=== PATIENT | female | born 1930 | race African-American/Black ===

== ENCOUNTER 2016-08-14 15:11 | Inpatient (IN) | payer MEDICARE, BC ==
[~2016-08-14] VITALS: Ht 160 cm; Wt 111.6 kg
[~2016-08-14 15:11] MED LIST: ALLO300T2 PO; CLON0.1T PO; CLOT15CR4 TP; FLUT1DIS3 IH; FURO-151 PO; GABA-533 PO; HYDR-523 PO; INSU3INS6 SUBCUT; METO10TA8 PO; PRAN1 PO
[2016-08-14] MEDS ORDERED: ASPIRIN 81MG TABLET PO STA (16:26)
[2016-08-14] MEDS ORDERED: NITROGLYCERIN OINT 1GM/INCH UDPKT TD STA (16:26)
[2016-08-14] MEDS ORDERED: FUROSEMIDE 40MG/4ML VIAL IV STA (16:26)
[2016-08-14] MEDS ORDERED: SODIUM CHLORIDE 0.9% 1000ML BAG (SEPSIS BOLUS) IV ONE (16:30)
[2016-08-14] MEDS ORDERED: PIPERACILLIN/TAZ 3.375G PREMIX 50 ML IV ONE (16:30)
[2016-08-14] MEDS ORDERED: TRAMADOL 50MG TABLET PO ONE (16:30)
[2016-08-14] MEDS ORDERED: VANCOMYCIN 1 G PREMIX 200 ML IV SCH (16:30)
[2016-08-14 17:08] LABS: BASOPHILS % 0.5 % (0.0-2.0); EOSINOPHILS % 2.4 % (0.0-5.0); HEMATOCRIT. 28.7 % (36.0-48.0); HEMOGLOBIN. 9.1 g/dL (12.0-16.0); LYMPHOCYTES % 13.7 % (20.0-50.0); MEAN CORPUSCULAR HEMOGLOBIN 28.6 pg (28.0-32.0); MEAN CORPUSCULAR HGB CONC 31.8 g/dL (31.0-37.0); MEAN PLATELET VOLUME 8.3 fl (7.4-10.4); MONOCYTES % 7.4 % (2.0-8.0); PLATELET 313 x1000/uL (130-400); RED BLOOD CELL COUNT 3.18 mill/uL (4.2-5.4); WHITE BLOOD COUNT 10.1 x1000/uL (4.5-11.0)
[2016-08-14 17:16] LABS: PROTHROMBIN TIME 10.9 sec
[2016-08-14 17:24] LABS: ALANINE AMINOTRANSFERASE 27 IU/L (13-61); ALBUMIN 3.6 g/dL (3.4-5.0); ANION GAP 14; CALCIUM 8.8 mg/dL (8.5-10.1); CARBON DIOXIDE 29 mEq/L (21-32); CHLORIDE 99 mEq/L (98-107); INDEX HEMOLYSI 1 (1-3); INDEX ICTERIC 1 (1-4); INDEX LIPEMIC 1 (1-3); NT PRO B-TYPE NATRIURETIC PEP 172 pg/mL (5-125); TROPONIN I < 0.02 ng/mL (0.00-0.04); UREA NITROGEN BLOOD 34 mg/dL (7-21); eGFR 40 mL/min (>60)
[2016-08-14 23:50] VITALS: BP 168/72
[2016-08-15] MEDS ORDERED: TRAMADOL 50MG TABLET PO PRN (03:30)
[2016-08-15] MEDS: POTASSIUM CHLORIDE 10MEQ TABLET SR PO SCH ×3 (03:51→18:10)
[2016-08-15 04:00] VITALS: BP 147/63
[2016-08-15] MEDS ORDERED: IPRATROPIUM/ALBUTEROL 0.5-3(2.5)MG/3ML NEB HHN PRN (07:45)
[2016-08-15] MEDS ORDERED: DEXTROSE 50% WATER 50ML SYRINGE IV PRN (07:45)
[2016-08-15] MEDS: INSULIN LISPRO 100 UNITS/ML SUBCUT SCH ×4 (07:50→22:06)
[2016-08-15 08:00] VITALS: BP 150/72
[2016-08-15] MEDS ORDERED: CLONIDINE 0.1MG TABLET PO SCH (09:00)
[2016-08-15 09:31] LABS: HEMATOCRIT 26.2 % (36.0-48.0); HEMOGLOBIN 8.4 g/dL (12.0-16.0); MEAN CORPUSCULAR HEMOGLOBIN 28.6 pg (28.0-32.0); MEAN CORPUSCULAR HGB CONC 32.2 g/dL (31.0-37.0); MEAN CORPUSCULAR VOLUME 88.9 fL (81.0-99.0); PLATELET 307 x1000/uL (130-400); RED BLOOD CELL COUNT 2.94 mill/uL (4.2-5.4); RED CELL DISTRIBUTION WIDTH 16.7 % (11.6-14.6); WHITE BLOOD COUNT 7.6 x1000/uL (4.5-11.0)
[2016-08-15] MEDS: ALLOPURINOL 100 MG TABLET PO SCH (09:41)
[2016-08-15] MEDS: GABAPENTIN 300MG CAPSULE PO SCH ×2 (09:41→18:11)
[2016-08-15] MEDS: FUROSEMIDE 40MG/4ML VIAL IVP SCH (09:41)
[2016-08-15] MEDS: ENOXAPARIN 30MG/0.3ML SYR SUBCUT SCH ×2 (09:43→20:14)
[2016-08-15 09:57] LABS: CALCIUM 8.6 mg/dL (8.5-10.1)
[2016-08-15 12:00] VITALS: BP 150/72
[2016-08-15] MEDS: BLOOD SUGAR DIAGNOSTIC STRIP TEST SCH ×3 (12:18→20:14)
[2016-08-15] MEDS: TERBUTALINE SULFATE 2.5MG TABLET PO SCH ×2 (14:21→20:14)
[2016-08-15] MEDS: CLONIDINE 0.1MG TABLET PO SCH ×2 (14:22→22:03)
[2016-08-15 20:00] VITALS: BP 142/70
[2016-08-15] MEDS: ATORVASTATIN CALCIUM 20MG TABLET PO SCH (20:14)
[2016-08-16] VITALS (11 sets, daily range): BP systolic 117–150; BP diastolic 45–67
[2016-08-16] MEDS: CLONIDINE 0.1MG TABLET PO SCH ×3 (06:00→21:45)
[2016-08-16 06:02] LABS: BASOPHILS % 0.6 % (0.0-2.0); EOSINOPHILS % 2.6 % (0.0-5.0); HEMOGLOBIN. 7.5 g/dL (12.0-16.0); LYMPHOCYTES % 24.2 % (20.0-50.0); MEAN CORPUSCULAR HEMOGLOBIN 29.2 pg (28.0-32.0); MEAN CORPUSCULAR HGB CONC 32.4 g/dL (31.0-37.0); MEAN CORPUSCULAR VOLUME 90.1 fL (81.0-99.0); MEAN PLATELET VOLUME 8.8 fl (7.4-10.4); MONOCYTES % 11.3 % (2.0-8.0); NEUTROPHILS % 61.3 % (40.0-76.0); PLATELET 246 x1000/uL (130-400); RED BLOOD CELL COUNT 2.56 mill/uL (4.2-5.4); RED CELL DISTRIBUTION WIDTH 16.6 % (11.6-14.6); WHITE BLOOD COUNT 7.9 x1000/uL (4.5-11.0)
[2016-08-16 07:22] LABS: MAGNESIUM 1.9 mg/dL (1.8-2.4)
[2016-08-16] MEDS: BLOOD SUGAR DIAGNOSTIC STRIP TEST SCH ×4 (07:56→20:41)
[2016-08-16] MEDS: INSULIN LISPRO 100 UNITS/ML SUBCUT SCH ×4 (08:23→20:41)
[2016-08-16] MEDS: POTASSIUM CHLORIDE 10MEQ TABLET SR PO SCH ×2 (08:23→17:34)
[2016-08-16] MEDS: ALLOPURINOL 100 MG TABLET PO SCH (08:23)
[2016-08-16] MEDS: FUROSEMIDE 40MG/4ML VIAL IVP SCH (08:23)
[2016-08-16] MEDS: TERBUTALINE SULFATE 2.5MG TABLET PO SCH ×3 (08:23→20:40)
[2016-08-16] MEDS: GABAPENTIN 300MG CAPSULE PO SCH ×2 (08:23→17:34)
[2016-08-16] MEDS: ENOXAPARIN 30MG/0.3ML SYR SUBCUT SCH ×2 (08:24→20:40)
[2016-08-16 11:52] LABS: INDEX HEMOLYSI 1 (1-3); INDEX ICTERIC 1 (1-4); INDEX LIPEMIC 1 (1-3); IRON 42 ug/dL (50-175); TOTAL IRON BINDING CAPACITY 352 ug/dL (250-450)
[2016-08-16] MEDS: ATORVASTATIN CALCIUM 20MG TABLET PO SCH (20:40)
[2016-08-17 00:05] VITALS: BP 120/63
[2016-08-17 04:00] VITALS: BP 116/42
[2016-08-17] MEDS: CLONIDINE 0.1MG TABLET PO SCH ×3 (05:18→21:00)
[2016-08-17 05:37] LABS: BASOPHILS % 0.3 % (0.0-2.0); EOSINOPHILS % 3.5 % (0.0-5.0); HEMATOCRIT. 26.5 % (36.0-48.0); HEMOGLOBIN. 8.7 g/dL (12.0-16.0); LYMPHOCYTES % 21.4 % (20.0-50.0); MEAN CORPUSCULAR HEMOGLOBIN 29.3 pg (28.0-32.0); MEAN CORPUSCULAR HGB CONC 32.7 g/dL (31.0-37.0); MEAN CORPUSCULAR VOLUME 89.6 fL (81.0-99.0); MONOCYTES % 9.1 % (2.0-8.0); NEUTROPHILS % 65.7 % (40.0-76.0); PLATELET 252 x1000/uL (130-400); RED BLOOD CELL COUNT 2.95 mill/uL (4.2-5.4); RED CELL DISTRIBUTION WIDTH 16.3 % (11.6-14.6); WHITE BLOOD COUNT 9.5 x1000/uL (4.5-11.0)
[2016-08-17 05:54] LABS: CALCIUM 7.9 mg/dL (8.5-10.1)
[2016-08-17] MEDS: BLOOD SUGAR DIAGNOSTIC STRIP TEST SCH ×4 (06:35→21:01)
[2016-08-17 08:00] VITALS: BP 146/64
[2016-08-17] MEDS: TERBUTALINE SULFATE 2.5MG TABLET PO SCH ×3 (08:06→20:59)
[2016-08-17] MEDS: POTASSIUM CHLORIDE 10MEQ TABLET SR PO SCH ×2 (08:06→17:39)
[2016-08-17] MEDS: GABAPENTIN 300MG CAPSULE PO SCH ×2 (08:06→17:39)
[2016-08-17] MEDS: ALLOPURINOL 100 MG TABLET PO SCH (08:06)
[2016-08-17] MEDS: ENOXAPARIN 30MG/0.3ML SYR SUBCUT SCH ×2 (08:07→20:59)
[2016-08-17] MEDS: INSULIN LISPRO 100 UNITS/ML SUBCUT SCH ×4 (08:07→21:00)
[2016-08-17] MEDS ORDERED: FUROSEMIDE 20MG/2ML VIAL IVP SCH (09:00)
[2016-08-17 12:00] VITALS: BP 136/63
[2016-08-17 16:00] VITALS: BP 128/67
[2016-08-17 20:00] VITALS: BP 131/51
[2016-08-17] MEDS: ATORVASTATIN CALCIUM 20MG TABLET PO SCH (20:59)
[2016-08-18] VITALS: BP 141/59
[2016-08-18 04:00] VITALS: BP 136/51
[2016-08-18] MEDS: CLONIDINE 0.1MG TABLET PO SCH (05:27)
[2016-08-18] MEDS: BLOOD SUGAR DIAGNOSTIC STRIP TEST SCH ×2 (06:35→12:20)
[2016-08-18 08:00] VITALS: BP 157/71
[2016-08-18] MEDS: ENOXAPARIN 30MG/0.3ML SYR SUBCUT SCH (08:34)
[2016-08-18] MEDS: TERBUTALINE SULFATE 2.5MG TABLET PO SCH (08:35)
[2016-08-18] MEDS: GABAPENTIN 300MG CAPSULE PO SCH (08:36)
[2016-08-18] MEDS: ALLOPURINOL 100 MG TABLET PO SCH (08:36)
[2016-08-18] MEDS: POTASSIUM CHLORIDE 10MEQ TABLET SR PO SCH (08:37)
[2016-08-18] MEDS: INSULIN LISPRO 100 UNITS/ML SUBCUT SCH ×2 (08:43→13:34)
[2016-08-18] MEDS ORDERED: FUROSEMIDE 40MG TABLET PO SCH (09:00)
[2016-08-18 12:00] VITALS: BP 158/69
[2016-08-18 12:50] VITALS: BP 126/72
[2016-08-20 10:20] LABS: 25-HYDROXY VITAMIN D3 3.5 ng/mL (.)
== END 2016-08-18 13:42 | disposition home or self-care (01) | DRG 291 ==
LOC: ER 16:32 → 6WST 21:24
PROVIDERS: ADMIT Specialist; ATTEND Specialist
PROC: 30233N1 Transfusion of Nonautologous Red Blood Cells into Peripheral Vein, Percutaneous Approach (ICD-10-PCS; principal; 2016-08-16)
DX: I13.0 Hypertensive heart and chronic kidney disease with heart failure and stage 1 through stage 4 chronic kidney disease, or unspecified chronic kidney disease (principal); I50.33 Acute on chronic diastolic (congestive) heart failure; Z68.41 Body mass index [BMI] 40.0-44.9, adult; L03.115 Cellulitis of right lower limb; L03.116 Cellulitis of left lower limb; E11.21 Type 2 diabetes mellitus with diabetic nephropathy; E11.22 Type 2 diabetes mellitus with diabetic chronic kidney disease; E11.49 Type 2 diabetes mellitus with other diabetic neurological complication; E11.65 Type 2 diabetes mellitus with hyperglycemia; E11.40 Type 2 diabetes mellitus with diabetic neuropathy, unspecified; E87.6 Hypokalemia; N18.3 Chronic kidney disease, stage 3 (moderate); E66.01 Morbid (severe) obesity due to excess calories; I27.2 Other secondary pulmonary hypertension; D46.9 Myelodysplastic syndrome, unspecified; D63.1 Anemia in chronic kidney disease; R26.81 Unsteadiness on feet; E78.5 Hyperlipidemia, unspecified; I07.1 Rheumatic tricuspid insufficiency; H40.9 Unspecified glaucoma; I25.10 Atherosclerotic heart disease of native coronary artery without angina pectoris; J44.9 Chronic obstructive pulmonary disease, unspecified; W18.39XA Other fall on same level, initial encounter; J45.909 Unspecified asthma, uncomplicated; M10.00 Idiopathic gout, unspecified site; M13.0 Polyarthritis, unspecified; T50.2X5A Adverse effect of carbonic-anhydrase inhibitors, benzothiadiazides and other diuretics, initial encounter; Z79.899 Other long term (current) drug therapy; Z79.4 Long term (current) use of insulin; Y93.89 Activity, other specified; Y92.89 Other specified places as the place of occurrence of the external cause; Y99.8 Other external cause status; Z88.0 Allergy status to penicillin; Z88.8 Allergy status to other drugs, medicaments and biological substances; Z88.5 Allergy status to narcotic agent; Z88.6 Allergy status to analgesic agent; Z87.891 Personal history of nicotine dependence
CPT/HCPCS: 36415; 71010; 73562; 80048; 80053; 80061; 82306; 82533; 82962; 83036; 83540; 83550; 83605; 83735; 83880; 84484; 85025; 85027; 85044; 85610; 85730; 86850; 86900; 86920; 87040; 93005; 93306; 93970; 96361; 96365; 96366; 96367; 96375; 96376; 97116; 97162; 97530; 99285; A6261; J1650; J1815; J1940; J2543; J3370; J7030; J7050; P9016

== ENCOUNTER 2021-09-05 22:30 | Inpatient (IN) | payer MEDICARE, BC ==
[~2021-09-05] VITALS: Ht 165.1 cm; Wt 87.5 kg
[2021-09-05 22:30] VITALS: BP_SYST 122; BP_SYST 132; BP_DIAS 54
[~2021-09-05 22:30] MED LIST changes: -HYDR-523 PO; -INSU3INS6 SUBCUT; -METO10TA8 PO
[2021-09-05] MEDS ORDERED: DEXTROSE 50% WATER 50ML SYRINGE IV PRN (23:15)
[2021-09-05] MEDS ORDERED: IPRATROPIUM/ALBUTEROL 0.5-3(2.5)MG/3ML NEB HHN PRN (23:30)
[2021-09-06] MEDS: GABAPENTIN 100MG CAPSULE PO SCH ×4 (01:33→18:09)
[2021-09-06] MEDS: CLONIDINE 0.1MG TABLET PO SCH ×3 (05:05→22:41)
[2021-09-06] MEDS: BLOOD SUGAR DIAGNOSTIC STRIP TEST SCH ×4 (05:06→21:00)
[2021-09-06 06:06] LABS: CHLORIDE 107 mEq/L (98-107)
[2021-09-06 06:12] LABS: BASOPHILS % 0.4 % (0.0-2.0); HEMATOCRIT. 23.7 % (36.0-48.0); HEMOGLOBIN. 7.9 g/dL (12.0-16.0); MEAN CORPUSCULAR HEMOGLOBIN 29.6 pg (28.0-32.0); MEAN CORPUSCULAR VOLUME 88.8 fL (81.0-99.0); MONOCYTES % 13.7 % (2.0-8.0); NEUTROPHILS % 58.9 % (40.0-76.0); PLATELET 271 x1000/uL (130-400); RED BLOOD CELL COUNT 2.67 mill/uL (4.2-5.4); RED CELL DISTRIBUTION WIDTH 13.9 % (11.6-14.6)
[2021-09-06 08:00] VITALS: BP 139/48
[2021-09-06] MEDS ORDERED: SODIUM POLYSTYRENE SULFONATE 15 G/60 ML BOT PO SCH (08:45)
[2021-09-06] MEDS: POLYETHYLENE GLYCOL 3350 (17GM) 1 DOSE PACK PO SCH ×2 (09:00→09:43)
[2021-09-06] MEDS: DOCUSATE SODIUM 100MG CAPSULE PO SCH ×3 (09:00→18:09)
[2021-09-06] MEDS: ALLOPURINOL 100 MG TABLET PO SCH (09:44)
[2021-09-06] MEDS: CYANOCOBALAMIN 1000MCG/ML VIAL IM SCH (09:44)
[2021-09-06] MEDS: AMLODIPINE 5MG TABLET PO SCH ×2 (09:44→22:41)
[2021-09-06 12:00] VITALS: BP 121/64
[2021-09-06 20:00] VITALS: BP 127/46
[2021-09-07] MEDS: GABAPENTIN 100MG CAPSULE PO SCH ×5 (00:28→23:28)
[2021-09-07] MEDS: BLOOD SUGAR DIAGNOSTIC STRIP TEST SCH ×4 (06:36→21:00)
[2021-09-07] MEDS: CLONIDINE 0.1MG TABLET PO SCH ×3 (06:37→23:29)
[2021-09-07 08:00] VITALS: BP 156/66
[2021-09-07] MEDS: POLYETHYLENE GLYCOL 3350 (17GM) 1 DOSE PACK PO SCH (09:00)
[2021-09-07] MEDS: ALLOPURINOL 100 MG TABLET PO SCH (09:39)
[2021-09-07] MEDS: DOCUSATE SODIUM 100MG CAPSULE PO SCH ×2 (09:40→18:41)
[2021-09-07] MEDS: AMLODIPINE 5MG TABLET PO SCH ×2 (09:40→22:30)
[2021-09-07] MEDS: CYANOCOBALAMIN 1000MCG/ML VIAL IM SCH (09:40)
[2021-09-07] MEDS: FERROUS SULFATE 325MG TABLET PO SCH (17:00)
[2021-09-07] MEDS: ERGOCALCIFEROL 50000UNITS CAPSULE PO SCH (17:00)
[2021-09-07 20:00] VITALS: BP 174/57
[2021-09-07 23:00] VITALS: BP 142/57
[2021-09-08 05:01] LABS: CLARITY URINE CLEAR (CLEAR); COLOR URINE YELLOW (YELLOW); KETONES URINE NEGATIVE (NEGATIVE); LEUKOCYTE ESTERASE URINE NEGATIVE (NEGATIVE); NITRITE URINE NEGATIVE (NEGATIVE); OCCULT BLOOD URINE NEGATIVE (NEGATIVE); PH URINE 6.5 (4.5-8.0); PROTEIN URINE 2+ (NEGATIVE); SPECIFIC GRAVITY URINE 1.014 (1.005-1.030)
[2021-09-08] MEDS: CLONIDINE 0.1MG TABLET PO SCH ×3 (05:49→21:04)
[2021-09-08] MEDS: BLOOD SUGAR DIAGNOSTIC STRIP TEST SCH ×4 (05:50→20:47)
[2021-09-08] MEDS: GABAPENTIN 100MG CAPSULE PO SCH ×4 (05:51→23:39)
[2021-09-08 07:31] LABS: BASOPHILS % 0.5 % (0.0-2.0); EOSINOPHILS % 4.5 % (0.0-5.0); HEMATOCRIT. 25.3 % (36.0-48.0); HEMOGLOBIN. 8.3 g/dL (12.0-16.0); MEAN CORPUSCULAR HEMOGLOBIN 29.7 pg (28.0-32.0); MEAN CORPUSCULAR VOLUME 90.1 fL (81.0-99.0); MEAN PLATELET VOLUME 7.8 fl (7.4-10.4); PLATELET 286 x1000/uL (130-400); RED BLOOD CELL COUNT 2.81 mill/uL (4.2-5.4); RED CELL DISTRIBUTION WIDTH 14.3 % (11.6-14.6)
[2021-09-08 07:40] LABS: CHLORIDE 110 mEq/L (98-107)
[2021-09-08 07:51] VITALS: BP 126/59
[2021-09-08] MEDS: POLYETHYLENE GLYCOL 3350 (17GM) 1 DOSE PACK PO SCH (09:00)
[2021-09-08] MEDS: CYANOCOBALAMIN 1000MCG/ML VIAL IM SCH (11:05)
[2021-09-08] MEDS: DOCUSATE SODIUM 100MG CAPSULE PO SCH ×2 (11:06→17:32)
[2021-09-08] MEDS: ASCORBIC ACID 500 MG TABLET PO SCH (11:06)
[2021-09-08] MEDS: ALLOPURINOL 100 MG TABLET PO SCH (11:06)
[2021-09-08] MEDS: FERROUS SULFATE 325MG TABLET PO SCH ×3 (11:06→17:32)
[2021-09-08] MEDS: AMLODIPINE 5MG TABLET PO SCH ×2 (11:06→21:04)
[2021-09-08 20:00] VITALS: BP 135/48
[2021-09-09] MEDS: GABAPENTIN 100MG CAPSULE PO SCH ×3 (05:30→17:09)
[2021-09-09] MEDS: CLONIDINE 0.1MG TABLET PO SCH ×3 (05:30→21:41)
[2021-09-09] MEDS: BLOOD SUGAR DIAGNOSTIC STRIP TEST SCH ×4 (06:21→21:48)
[2021-09-09 08:00] VITALS: BP 145/62
[2021-09-09] MEDS: AMLODIPINE 5MG TABLET PO SCH ×2 (09:28→21:41)
[2021-09-09] MEDS: ASCORBIC ACID 500 MG TABLET PO SCH (09:28)
[2021-09-09] MEDS: FERROUS SULFATE 325MG TABLET PO SCH ×3 (09:29→17:08)
[2021-09-09 10:56] LABS: CREATINE KINASE 113 IU/L (26-192)
[2021-09-09] MEDS ORDERED: SODIUM POLYSTYRENE SULFONATE 15 G/60 ML BOT PO NR (11:00)
[2021-09-09] MEDS: DOCUSATE SODIUM 100MG CAPSULE PO SCH ×2 (11:19→17:08)
[2021-09-09] MEDS: POLYETHYLENE GLYCOL 3350 (17GM) 1 DOSE PACK PO SCH (11:20)
[2021-09-09] MEDS: CYANOCOBALAMIN 1000MCG/ML VIAL IM SCH (11:20)
[2021-09-09] MEDS: ALLOPURINOL 100 MG TABLET PO SCH (11:20)
[2021-09-09] MEDS ORDERED: BISACODYL 10MG SUPP PR PRN (15:45)
[2021-09-09] MEDS: LACTULOSE 20G/30ML UDC PO SCH ×2 (17:00→21:00)
[2021-09-09 20:00] VITALS: BP 126/43
[2021-09-10] MEDS: GABAPENTIN 100MG CAPSULE PO SCH ×5 (00:19→23:24)
[2021-09-10] MEDS: CLONIDINE 0.1MG TABLET PO SCH ×3 (06:20→21:03)
[2021-09-10] MEDS: BLOOD SUGAR DIAGNOSTIC STRIP TEST SCH ×4 (06:20→21:06)
[2021-09-10 07:56] VITALS: BP 131/52
[2021-09-10 08:05] LABS: BASOPHILS % 0.3 % (0.0-2.0); EOSINOPHILS % 3.6 % (0.0-5.0); HEMATOCRIT. 23.6 % (36.0-48.0); LYMPHOCYTES % 18.9 % (20.0-50.0); MEAN CORPUSCULAR HEMOGLOBIN 30.1 pg (28.0-32.0); MEAN CORPUSCULAR VOLUME 88.9 fL (81.0-99.0); MEAN PLATELET VOLUME 7.6 fl (7.4-10.4); MONOCYTES % 9.7 % (2.0-8.0); NEUTROPHILS % 67.5 % (40.0-76.0); PLATELET 314 x1000/uL (130-400); RED BLOOD CELL COUNT 2.65 mill/uL (4.2-5.4); RED CELL DISTRIBUTION WIDTH 13.9 % (11.6-14.6)
[2021-09-10] MEDS: ALLOPURINOL 100 MG TABLET PO SCH (08:18)
[2021-09-10] MEDS: FERROUS SULFATE 325MG TABLET PO SCH ×3 (08:18→18:07)
[2021-09-10] MEDS: DOCUSATE SODIUM 100MG CAPSULE PO SCH ×2 (08:18→17:00)
[2021-09-10] MEDS: ASCORBIC ACID 500 MG TABLET PO SCH (08:19)
[2021-09-10] MEDS: POLYETHYLENE GLYCOL 3350 (17GM) 1 DOSE PACK PO SCH (08:19)
[2021-09-10] MEDS: AMLODIPINE 5MG TABLET PO SCH ×2 (08:19→21:02)
[2021-09-10] MEDS: LACTULOSE 20G/30ML UDC PO SCH (09:00)
[2021-09-10] MEDS ORDERED: SODIUM POLYSTYRENE SULFONATE 15 G/60 ML BOT PO SCH (10:00)
[2021-09-10 20:00] VITALS: BP 155/52
[2021-09-11] MEDS: GABAPENTIN 100MG CAPSULE PO SCH ×4 (06:03→23:13)
[2021-09-11] MEDS: CLONIDINE 0.1MG TABLET PO SCH ×3 (06:03→22:25)
[2021-09-11] MEDS: BLOOD SUGAR DIAGNOSTIC STRIP TEST SCH ×4 (06:08→21:00)
[2021-09-11 06:48] LABS: BASOPHILS % 0.2 % (0.0-2.0); HEMATOCRIT. 24.1 % (36.0-48.0); HEMOGLOBIN. 7.8 g/dL (12.0-16.0); LYMPHOCYTES % 16.6 % (20.0-50.0); MEAN CORPUSCULAR HEMOGLOBIN 29.3 pg (28.0-32.0); MEAN CORPUSCULAR VOLUME 90.1 fL (81.0-99.0); MEAN PLATELET VOLUME 7.6 fl (7.4-10.4); MONOCYTES % 9.6 % (2.0-8.0); NEUTROPHILS % 70.6 % (40.0-76.0); PLATELET 309 x1000/uL (130-400); RED BLOOD CELL COUNT 2.67 mill/uL (4.2-5.4); RED CELL DISTRIBUTION WIDTH 14.4 % (11.6-14.6)
[2021-09-11 08:00] VITALS: BP 112/52
[2021-09-11] MEDS: ASCORBIC ACID 500 MG TABLET PO SCH (08:00)
[2021-09-11] MEDS: ALLOPURINOL 100 MG TABLET PO SCH (08:00)
[2021-09-11] MEDS: AMLODIPINE 5MG TABLET PO SCH ×2 (08:01→22:26)
[2021-09-11] MEDS: FERROUS SULFATE 325MG TABLET PO SCH ×3 (08:01→17:12)
[2021-09-11] MEDS: DOCUSATE SODIUM 100MG CAPSULE PO SCH ×2 (08:05→17:00)
[2021-09-11] MEDS: POLYETHYLENE GLYCOL 3350 (17GM) 1 DOSE PACK PO SCH (08:05)
[2021-09-11 20:00] VITALS: BP 122/44
[2021-09-12] MEDS: BLOOD SUGAR DIAGNOSTIC STRIP TEST SCH ×4 (06:30→21:00)
[2021-09-12] MEDS: GABAPENTIN 100MG CAPSULE PO SCH ×3 (06:32→18:20)
[2021-09-12] MEDS: CLONIDINE 0.1MG TABLET PO SCH ×3 (06:33→22:44)
[2021-09-12 07:26] LABS: BASOPHILS % 0.3 % (0.0-2.0); EOSINOPHILS % 3.2 % (0.0-5.0); HEMATOCRIT. 25.3 % (36.0-48.0); HEMOGLOBIN. 8.2 g/dL (12.0-16.0); LYMPHOCYTES % 19.1 % (20.0-50.0); MEAN CORPUSCULAR HEMOGLOBIN 29.9 pg (28.0-32.0); MEAN CORPUSCULAR VOLUME 91.8 fL (81.0-99.0); MEAN PLATELET VOLUME 7.5 fl (7.4-10.4); MONOCYTES % 9.9 % (2.0-8.0); NEUTROPHILS % 67.5 % (40.0-76.0); PLATELET 332 x1000/uL (130-400); RED BLOOD CELL COUNT 2.75 mill/uL (4.2-5.4); RED CELL DISTRIBUTION WIDTH 14.1 % (11.6-14.6)
[2021-09-12 08:00] VITALS: BP 138/53
[2021-09-12] MEDS: ALLOPURINOL 100 MG TABLET PO SCH (09:06)
[2021-09-12] MEDS: ASCORBIC ACID 500 MG TABLET PO SCH (09:06)
[2021-09-12] MEDS: DOCUSATE SODIUM 100MG CAPSULE PO SCH ×2 (09:07→18:20)
[2021-09-12] MEDS: FERROUS SULFATE 325MG TABLET PO SCH ×3 (09:07→18:19)
[2021-09-12] MEDS: POLYETHYLENE GLYCOL 3350 (17GM) 1 DOSE PACK PO SCH (09:07)
[2021-09-12] MEDS: AMLODIPINE 5MG TABLET PO SCH ×2 (09:08→22:27)
[2021-09-12] MEDS: DICLOFENAC SODIUM 1% GEL 50GM TOP SCH ×3 (13:00→21:00)
[2021-09-12] MEDS: LIDOCAINE 5% PATCH TOP SCH (14:00)
[2021-09-12] MEDS: METHYL SALICYLATE/MENTHOL CREAM 85GM TOP SCH (18:00)
[2021-09-12 20:00] VITALS: BP 171/72
[2021-09-13] MEDS: CLONIDINE 0.1MG TABLET PO SCH ×3 (06:00→21:43)
[2021-09-13] MEDS: BLOOD SUGAR DIAGNOSTIC STRIP TEST SCH ×4 (06:30→21:00)
[2021-09-13] MEDS: METHYL SALICYLATE/MENTHOL CREAM 85GM TOP SCH ×4 (06:40→17:50)
[2021-09-13] MEDS: GABAPENTIN 100MG CAPSULE PO SCH ×4 (06:40→16:55)
[2021-09-13 08:00] VITALS: BP 172/65
[2021-09-13] MEDS: FERROUS SULFATE 325MG TABLET PO SCH ×3 (08:53→16:56)
[2021-09-13] MEDS: DOCUSATE SODIUM 100MG CAPSULE PO SCH ×2 (08:54→16:55)
[2021-09-13] MEDS: ALLOPURINOL 100 MG TABLET PO SCH (08:54)
[2021-09-13] MEDS: ASCORBIC ACID 500 MG TABLET PO SCH (08:54)
[2021-09-13] MEDS: AMLODIPINE 5MG TABLET PO SCH ×2 (08:55→21:00)
[2021-09-13] MEDS: LIDOCAINE 5% PATCH TOP SCH (08:56)
[2021-09-13] MEDS: DICLOFENAC SODIUM 1% GEL 50GM TOP SCH ×4 (08:56→21:00)
[2021-09-13] MEDS: POLYETHYLENE GLYCOL 3350 (17GM) 1 DOSE PACK PO SCH (09:08)
[2021-09-13] MEDS: ACETAMINOPHEN 325MG TABLET PO PRN ×2 (09:08→10:08)
[2021-09-13 20:00] VITALS: BP 94/70
[2021-09-14 04:08] LABS: 25-HYDROXY VITAMIN D3 14 ng/mL (.)
[2021-09-14] MEDS: METHYL SALICYLATE/MENTHOL CREAM 85GM TOP SCH ×4 (06:00→17:29)
[2021-09-14] MEDS: CLONIDINE 0.1MG TABLET PO SCH ×3 (06:28→21:50)
[2021-09-14] MEDS: BLOOD SUGAR DIAGNOSTIC STRIP TEST SCH ×4 (06:28→21:19)
[2021-09-14] MEDS: GABAPENTIN 100MG CAPSULE PO SCH ×4 (06:28→17:29)
[2021-09-14 08:00] VITALS: BP 134/47
[2021-09-14 08:46] LABS: BASOPHILS % 0.4 % (0.0-2.0); EOSINOPHILS % 3.5 % (0.0-5.0); HEMATOCRIT. 24.6 % (36.0-48.0); HEMOGLOBIN. 8.2 g/dL (12.0-16.0); LYMPHOCYTES % 17.1 % (20.0-50.0); MEAN CORPUSCULAR HEMOGLOBIN 29.5 pg (28.0-32.0); MEAN CORPUSCULAR VOLUME 88.4 fL (81.0-99.0); MEAN PLATELET VOLUME 7.9 fl (7.4-10.4); MONOCYTES % 9.8 % (2.0-8.0); NEUTROPHILS % 69.2 % (40.0-76.0); PLATELET 377 x1000/uL (130-400); RED BLOOD CELL COUNT 2.79 mill/uL (4.2-5.4)
[2021-09-14] MEDS: ERGOCALCIFEROL 50000UNITS CAPSULE PO SCH (09:49)
[2021-09-14] MEDS: FERROUS SULFATE 325MG TABLET PO SCH ×3 (09:49→17:29)
[2021-09-14] MEDS: AMLODIPINE 5MG TABLET PO SCH ×2 (09:49→21:49)
[2021-09-14] MEDS: ASCORBIC ACID 500 MG TABLET PO SCH (09:49)
[2021-09-14] MEDS: DOCUSATE SODIUM 100MG CAPSULE PO SCH ×2 (09:49→17:29)
[2021-09-14] MEDS: LIDOCAINE 5% PATCH TOP SCH (09:50)
[2021-09-14] MEDS: DICLOFENAC SODIUM 1% GEL 50GM TOP SCH ×4 (09:50→21:50)
[2021-09-14] MEDS: POLYETHYLENE GLYCOL 3350 (17GM) 1 DOSE PACK PO SCH (09:50)
[2021-09-14] MEDS ORDERED: IPRATROPIUM/ALBUTEROL 0.5-3(2.5)MG/3ML NEB HHN PRN (10:00)
[2021-09-14] MEDS: ALLOPURINOL 100 MG TABLET PO SCH (10:02)
[2021-09-14] MEDS: PHENYLEPHRINE HCL 0.5% 15ML NASAL SPRAY BOTHNSTRLS SCH ×2 (14:05→21:51)
[2021-09-14] MEDS: SODIUM CHLORIDE 45ML SPRAY NS SCH ×2 (14:05→17:30)
[2021-09-14] MEDS: FLUTICASONE PROPIONATE 50MCG/SPRAY BOTTLE BOTHNSTRLS SCH (14:05)
[2021-09-14 20:00] VITALS: BP 163/57
[2021-09-15] MEDS: SODIUM CHLORIDE 45ML SPRAY NS SCH ×5 (01:58→17:54)
[2021-09-15] MEDS: METHYL SALICYLATE/MENTHOL CREAM 85GM TOP SCH ×6 (01:58→17:54)
[2021-09-15] MEDS: GABAPENTIN 100MG CAPSULE PO SCH ×4 (01:58→17:54)
[2021-09-15] MEDS: BLOOD SUGAR DIAGNOSTIC STRIP TEST SCH ×4 (06:30→21:00)
[2021-09-15] MEDS: IPRATROPIUM/ALBUTEROL 0.5-3(2.5)MG/3ML NEB HHN SCH ×2 (07:30→20:00)
[2021-09-15] MEDS: PHENYLEPHRINE HCL 0.5% 15ML NASAL SPRAY BOTHNSTRLS SCH ×3 (07:32→22:17)
[2021-09-15] MEDS: CLONIDINE 0.1MG TABLET PO SCH ×3 (07:32→22:20)
[2021-09-15 08:00] VITALS: BP 147/56
[2021-09-15] MEDS: POLYETHYLENE GLYCOL 3350 (17GM) 1 DOSE PACK PO SCH ×2 (09:00→10:24)
[2021-09-15] MEDS: FLUTICASONE PROPIONATE 50MCG/SPRAY BOTTLE BOTHNSTRLS SCH (10:20)
[2021-09-15] MEDS: LIDOCAINE 5% PATCH TOP SCH (10:21)
[2021-09-15] MEDS: DICLOFENAC SODIUM 1% GEL 50GM TOP SCH ×4 (10:22→21:00)
[2021-09-15] MEDS: ASCORBIC ACID 500 MG TABLET PO SCH (10:22)
[2021-09-15] MEDS: DOCUSATE SODIUM 100MG CAPSULE PO SCH ×2 (10:22→17:54)
[2021-09-15] MEDS: ALLOPURINOL 100 MG TABLET PO SCH (10:23)
[2021-09-15] MEDS: FERROUS SULFATE 325MG TABLET PO SCH ×3 (10:23→17:53)
[2021-09-15] MEDS: AMLODIPINE 5MG TABLET PO SCH ×2 (10:23→22:18)
[2021-09-15] MEDS ORDERED: NA PHOS,M-B/NA PHOS,DI-BA ENEMA 118ML PR NR (17:15)
[2021-09-15 20:00] VITALS: BP 168/52
[2021-09-15] MEDS ORDERED: LACTULOSE 20G/30ML UDC PO SCH (22:00)
[2021-09-16] MEDS: GABAPENTIN 100MG CAPSULE PO SCH ×4 (00:14→21:21)
[2021-09-16] MEDS: CLONIDINE 0.1MG TABLET PO SCH ×3 (05:49→21:22)
[2021-09-16] MEDS: PHENYLEPHRINE HCL 0.5% 15ML NASAL SPRAY BOTHNSTRLS SCH ×2 (05:49→13:36)
[2021-09-16] MEDS: SODIUM CHLORIDE 45ML SPRAY NS SCH ×4 (05:49→17:58)
[2021-09-16] MEDS: BLOOD SUGAR DIAGNOSTIC STRIP TEST SCH ×4 (05:50→21:00)
[2021-09-16] MEDS: METHYL SALICYLATE/MENTHOL CREAM 85GM TOP SCH ×4 (05:50→17:58)
[2021-09-16 08:00] VITALS: BP 125/55
[2021-09-16] MEDS: FLUTICASONE PROPIONATE 50MCG/SPRAY BOTTLE BOTHNSTRLS SCH (09:00)
[2021-09-16] MEDS: DICLOFENAC SODIUM 1% GEL 50GM TOP SCH ×4 (09:00→21:00)
[2021-09-16] MEDS: POLYETHYLENE GLYCOL 3350 (17GM) 1 DOSE PACK PO SCH (09:00)
[2021-09-16] MEDS: ALLOPURINOL 100 MG TABLET PO SCH (09:21)
[2021-09-16] MEDS: DOCUSATE SODIUM 100MG CAPSULE PO SCH ×2 (09:21→16:52)
[2021-09-16] MEDS: ASCORBIC ACID 500 MG TABLET PO SCH (09:21)
[2021-09-16] MEDS: FERROUS SULFATE 325MG TABLET PO SCH ×3 (09:21→16:52)
[2021-09-16] MEDS: AMLODIPINE 5MG TABLET PO SCH ×2 (09:22→21:22)
[2021-09-16] MEDS: CYANOCOBALAMIN 1000MCG/ML VIAL IM SCH (09:22)
[2021-09-16] MEDS: LIDOCAINE 5% PATCH TOP SCH (09:23)
[2021-09-16 20:00] VITALS: BP 145/47
[2021-09-17] MEDS: SODIUM CHLORIDE 45ML SPRAY NS SCH ×4 (05:36→17:26)
[2021-09-17] MEDS: METHYL SALICYLATE/MENTHOL CREAM 85GM TOP SCH ×4 (05:37→17:26)
[2021-09-17] MEDS: CLONIDINE 0.1MG TABLET PO SCH ×3 (05:45→22:00)
[2021-09-17] MEDS: BLOOD SUGAR DIAGNOSTIC STRIP TEST SCH ×4 (05:45→21:00)
[2021-09-17] MEDS: GABAPENTIN 100MG CAPSULE PO SCH ×4 (05:45→17:24)
[2021-09-17] MEDS: ACETAMINOPHEN 325MG TABLET PO PRN (05:45)
[2021-09-17 06:37] LABS: BASOPHILS % 0.2 % (0.0-2.0); EOSINOPHILS % 2.7 % (0.0-5.0); HEMATOCRIT. 27.6 % (36.0-48.0); HEMOGLOBIN. 8.9 g/dL (12.0-16.0); LYMPHOCYTES % 15.7 % (20.0-50.0); MEAN CORPUSCULAR HEMOGLOBIN 28.9 pg (28.0-32.0); MEAN CORPUSCULAR VOLUME 89.2 fL (81.0-99.0); MEAN PLATELET VOLUME 7.7 fl (7.4-10.4); NEUTROPHILS % 70.4 % (40.0-76.0); PLATELET 407 x1000/uL (130-400); RED CELL DISTRIBUTION WIDTH 14.3 % (11.6-14.6)
[2021-09-17 08:00] VITALS: BP 127/44
[2021-09-17] MEDS: POLYETHYLENE GLYCOL 3350 (17GM) 1 DOSE PACK PO SCH ×2 (09:00→10:19)
[2021-09-17] MEDS: LIDOCAINE 5% PATCH TOP SCH ×2 (09:00→10:19)
[2021-09-17] MEDS: FLUTICASONE PROPIONATE 50MCG/SPRAY BOTTLE BOTHNSTRLS SCH (09:00)
[2021-09-17] MEDS: ASCORBIC ACID 500 MG TABLET PO SCH (10:19)
[2021-09-17] MEDS: DICLOFENAC SODIUM 1% GEL 50GM TOP SCH ×4 (10:19→22:22)
[2021-09-17] MEDS: ALLOPURINOL 100 MG TABLET PO SCH (10:19)
[2021-09-17] MEDS: FERROUS SULFATE 325MG TABLET PO SCH ×3 (10:19→17:24)
[2021-09-17] MEDS: AMLODIPINE 5MG TABLET PO SCH ×2 (10:20→22:21)
[2021-09-17] MEDS: DOCUSATE SODIUM 100MG CAPSULE PO SCH ×2 (10:21→17:24)
[2021-09-17 20:00] VITALS: BP 135/35
[2021-09-18] MEDS: GABAPENTIN 100MG CAPSULE PO SCH ×4 (00:35→17:30)
[2021-09-18] MEDS: METHYL SALICYLATE/MENTHOL CREAM 85GM TOP SCH ×4 (00:37→16:54)
[2021-09-18] MEDS: SODIUM CHLORIDE 45ML SPRAY NS SCH ×4 (00:38→16:54)
[2021-09-18] MEDS: CLONIDINE 0.1MG TABLET PO SCH ×3 (06:35→22:00)
[2021-09-18] MEDS: BLOOD SUGAR DIAGNOSTIC STRIP TEST SCH ×4 (06:36→21:24)
[2021-09-18] MEDS: IPRATROPIUM/ALBUTEROL 0.5-3(2.5)MG/3ML NEB HHN SCH ×2 (07:44→14:37)
[2021-09-18 08:00] VITALS: BP 134/52
[2021-09-18] MEDS: DICLOFENAC SODIUM 1% GEL 50GM TOP SCH ×4 (09:00→22:05)
[2021-09-18] MEDS: ASCORBIC ACID 500 MG TABLET PO SCH (09:56)
[2021-09-18] MEDS: POLYETHYLENE GLYCOL 3350 (17GM) 1 DOSE PACK PO SCH (09:56)
[2021-09-18] MEDS: DOCUSATE SODIUM 100MG CAPSULE PO SCH ×2 (09:56→17:30)
[2021-09-18] MEDS: ALLOPURINOL 100 MG TABLET PO SCH (09:56)
[2021-09-18] MEDS: FERROUS SULFATE 325MG TABLET PO SCH ×3 (09:56→17:30)
[2021-09-18] MEDS: AMLODIPINE 5MG TABLET PO SCH ×2 (09:57→22:05)
[2021-09-18] MEDS: LIDOCAINE 5% PATCH TOP SCH (09:57)
[2021-09-18] MEDS: METFORMIN HCL 500MG TABLET PO SCH (13:22)
[2021-09-18] MEDS: ACETAMINOPHEN 325MG TABLET PO PRN (17:56)
[2021-09-18 20:00] VITALS: BP 122/43
[2021-09-19] MEDS: SODIUM CHLORIDE 45ML SPRAY NS SCH ×4 (01:04→18:00)
[2021-09-19] MEDS: GABAPENTIN 100MG CAPSULE PO SCH ×4 (01:05→18:57)
[2021-09-19] MEDS: METHYL SALICYLATE/MENTHOL CREAM 85GM TOP SCH ×4 (01:08→18:00)
[2021-09-19] MEDS: CLONIDINE 0.1MG TABLET PO SCH ×3 (06:00→22:00)
[2021-09-19] MEDS: BLOOD SUGAR DIAGNOSTIC STRIP TEST SCH ×4 (06:24→21:00)
[2021-09-19 08:00] VITALS: BP 137/53
[2021-09-19] MEDS: DICLOFENAC SODIUM 1% GEL 50GM TOP SCH ×4 (09:00→22:04)
[2021-09-19] MEDS: DOCUSATE SODIUM 100MG CAPSULE PO SCH ×2 (09:32→17:37)
[2021-09-19] MEDS: ASCORBIC ACID 500 MG TABLET PO SCH (09:32)
[2021-09-19] MEDS: FERROUS SULFATE 325MG TABLET PO SCH ×3 (09:32→17:36)
[2021-09-19] MEDS: ALLOPURINOL 100 MG TABLET PO SCH (09:32)
[2021-09-19] MEDS: POLYETHYLENE GLYCOL 3350 (17GM) 1 DOSE PACK PO SCH (09:33)
[2021-09-19] MEDS: AMLODIPINE 5MG TABLET PO SCH ×2 (09:33→22:06)
[2021-09-19] MEDS: LIDOCAINE 5% PATCH TOP SCH (09:34)
[2021-09-19] MEDS: METFORMIN HCL 500MG TABLET PO SCH (11:30)
[2021-09-19] MEDS ORDERED: LIDOCAINE HCL 4% CREAM 76GM TUBE TP PRN (15:00)
[2021-09-19] MEDS: LIDOCAINE HCL 4% CREAM 76GM TUBE TP SCH ×2 (17:00→22:03)
[2021-09-19 19:39] VITALS: BP 133/60
[2021-09-19] MEDS: IPRATROPIUM/ALBUTEROL 0.5-3(2.5)MG/3ML NEB HHN SCH (21:10)
[2021-09-20] MEDS: CLONIDINE 0.1MG TABLET PO SCH ×3 (06:00→22:00)
[2021-09-20] MEDS: SODIUM CHLORIDE 45ML SPRAY NS SCH ×4 (06:00→18:00)
[2021-09-20] MEDS: GABAPENTIN 100MG CAPSULE PO SCH ×4 (06:00→17:59)
[2021-09-20] MEDS: BLOOD SUGAR DIAGNOSTIC STRIP TEST SCH ×4 (06:05→21:00)
[2021-09-20 06:32] LABS: BASOPHILS % 0.5 % (0.0-2.0); EOSINOPHILS % 3.8 % (0.0-5.0); HEMATOCRIT. 25.8 % (36.0-48.0); HEMOGLOBIN. 8.3 g/dL (12.0-16.0); LYMPHOCYTES % 17.4 % (20.0-50.0); MEAN CORPUSCULAR HEMOGLOBIN 28.5 pg (28.0-32.0); MEAN CORPUSCULAR VOLUME 88.6 fL (81.0-99.0); MEAN PLATELET VOLUME 7.8 fl (7.4-10.4); MONOCYTES % 9.2 % (2.0-8.0); NEUTROPHILS % 69.1 % (40.0-76.0); PLATELET 370 x1000/uL (130-400); RED BLOOD CELL COUNT 2.91 mill/uL (4.2-5.4); RED CELL DISTRIBUTION WIDTH 14.7 % (11.6-14.6)
[2021-09-20 06:59] LABS: CHLORIDE 111 mEq/L (98-107)
[2021-09-20] MEDS: METHYL SALICYLATE/MENTHOL CREAM 85GM TOP SCH ×4 (07:09→18:02)
[2021-09-20] MEDS: IPRATROPIUM/ALBUTEROL 0.5-3(2.5)MG/3ML NEB HHN SCH ×3 (07:15→21:30)
[2021-09-20 08:00] VITALS: BP 136/40
[2021-09-20] MEDS: LIDOCAINE HCL 4% CREAM 76GM TUBE TP SCH ×4 (08:23→21:00)
[2021-09-20] MEDS: FERROUS SULFATE 325MG TABLET PO SCH ×3 (08:24→17:59)
[2021-09-20] MEDS: ALLOPURINOL 100 MG TABLET PO SCH (08:24)
[2021-09-20] MEDS: DICLOFENAC SODIUM 1% GEL 50GM TOP SCH ×4 (08:24→21:00)
[2021-09-20] MEDS: ASCORBIC ACID 500 MG TABLET PO SCH (08:24)
[2021-09-20] MEDS: DOCUSATE SODIUM 100MG CAPSULE PO SCH ×2 (08:24→17:59)
[2021-09-20] MEDS: AMLODIPINE 5MG TABLET PO SCH ×2 (08:24→21:00)
[2021-09-20] MEDS: POLYETHYLENE GLYCOL 3350 (17GM) 1 DOSE PACK PO SCH (08:24)
[2021-09-20] MEDS ORDERED: NA PHOS,M-B/NA PHOS,DI-BA ENEMA 118ML PR SCH (09:00)
[2021-09-20] MEDS: LIDOCAINE 5% PATCH TOP SCH (09:00)
[2021-09-20 10:37] LABS: CREATINE KINASE 67 IU/L (26-192)
[2021-09-20] MEDS: LEVOFLOXACIN 250MG TABLET PO SCH (12:22)
[2021-09-20 20:00] VITALS: BP 134/44
[2021-09-21] MEDS: SODIUM CHLORIDE 0.9% 1,000 ML IV SCH ×2 (01:40→17:26)
[2021-09-21] MEDS: CLONIDINE 0.1MG TABLET PO SCH ×3 (06:00→23:33)
[2021-09-21] MEDS: SODIUM CHLORIDE 45ML SPRAY NS SCH ×4 (06:00→17:33)
[2021-09-21] MEDS: METHYL SALICYLATE/MENTHOL CREAM 85GM TOP SCH ×4 (06:00→17:32)
[2021-09-21] MEDS: GABAPENTIN 100MG CAPSULE PO SCH ×4 (06:00→17:31)
[2021-09-21] MEDS: BLOOD SUGAR DIAGNOSTIC STRIP TEST SCH ×4 (06:30→21:00)
[2021-09-21 06:31] LABS: BASOPHILS % 0.5 % (0.0-2.0); EOSINOPHILS % 4.4 % (0.0-5.0); HEMATOCRIT. 23.8 % (36.0-48.0); LYMPHOCYTES % 20.1 % (20.0-50.0); MEAN CORPUSCULAR HEMOGLOBIN 29.7 pg (28.0-32.0); MEAN CORPUSCULAR VOLUME 88.6 fL (81.0-99.0); MEAN PLATELET VOLUME 8.1 fl (7.4-10.4); MONOCYTES % 10.1 % (2.0-8.0); NEUTROPHILS % 64.9 % (40.0-76.0); PLATELET 334 x1000/uL (130-400); RED BLOOD CELL COUNT 2.69 mill/uL (4.2-5.4); RED CELL DISTRIBUTION WIDTH 14.2 % (11.6-14.6)
[2021-09-21 08:00] VITALS: BP 149/41
[2021-09-21] MEDS: POLYETHYLENE GLYCOL 3350 (17GM) 1 DOSE PACK PO SCH (09:00)
[2021-09-21] MEDS: FERROUS SULFATE 325MG TABLET PO SCH ×3 (10:02→17:32)
[2021-09-21] MEDS: DOCUSATE SODIUM 100MG CAPSULE PO SCH ×2 (10:02→17:31)
[2021-09-21] MEDS: ERGOCALCIFEROL 50000UNITS CAPSULE PO SCH (10:02)
[2021-09-21] MEDS: AMLODIPINE 5MG TABLET PO SCH ×2 (10:02→23:32)
[2021-09-21] MEDS: ALLOPURINOL 100 MG TABLET PO SCH (10:02)
[2021-09-21] MEDS: ASCORBIC ACID 500 MG TABLET PO SCH (10:03)
[2021-09-21] MEDS: LIDOCAINE 5% PATCH TOP SCH (10:05)
[2021-09-21] MEDS: LEVOFLOXACIN 250MG TABLET PO SCH (11:49)
[2021-09-21] MEDS: DICLOFENAC SODIUM 1% GEL 50GM TOP SCH ×3 (11:51→21:00)
[2021-09-21] MEDS: LIDOCAINE HCL 4% CREAM 76GM TUBE TP SCH ×3 (11:51→21:00)
[2021-09-21 20:00] VITALS: BP 157/50
[2021-09-21] MEDS: IPRATROPIUM/ALBUTEROL 0.5-3(2.5)MG/3ML NEB HHN SCH (21:09)
[2021-09-22] MEDS: IPRATROPIUM/ALBUTEROL 0.5-3(2.5)MG/3ML NEB HHN SCH ×2 (01:50→20:56)
[2021-09-22] MEDS: CLONIDINE 0.1MG TABLET PO SCH ×3 (06:00→22:57)
[2021-09-22] MEDS: METHYL SALICYLATE/MENTHOL CREAM 85GM TOP SCH ×4 (06:00→16:59)
[2021-09-22] MEDS: SODIUM CHLORIDE 45ML SPRAY NS SCH ×4 (06:00→16:58)
[2021-09-22] MEDS: BLOOD SUGAR DIAGNOSTIC STRIP TEST SCH ×3 (06:30→17:00)
[2021-09-22] MEDS: GABAPENTIN 100MG CAPSULE PO SCH ×5 (06:41→22:55)
[2021-09-22 08:00] VITALS: BP 127/48
[2021-09-22] MEDS: FERROUS SULFATE 325MG TABLET PO SCH ×3 (10:28→16:56)
[2021-09-22] MEDS: ASCORBIC ACID 500 MG TABLET PO SCH (10:28)
[2021-09-22] MEDS: AMLODIPINE 5MG TABLET PO SCH ×2 (10:28→22:56)
[2021-09-22] MEDS: ALLOPURINOL 100 MG TABLET PO SCH (10:28)
[2021-09-22] MEDS: DOCUSATE SODIUM 100MG CAPSULE PO SCH ×2 (10:28→16:55)
[2021-09-22] MEDS: LIDOCAINE 5% PATCH TOP SCH (10:44)
[2021-09-22] MEDS: DICLOFENAC SODIUM 1% GEL 50GM TOP SCH ×4 (10:44→21:00)
[2021-09-22] MEDS: LIDOCAINE HCL 4% CREAM 76GM TUBE TP SCH ×4 (10:44→21:00)
[2021-09-22] MEDS: POLYETHYLENE GLYCOL 3350 (17GM) 1 DOSE PACK PO SCH (10:51)
[2021-09-22] MEDS: SODIUM CHLORIDE 0.9% 1,000 ML IV SCH (10:55)
[2021-09-22] MEDS: LEVOFLOXACIN 250MG TABLET PO SCH (12:50)
[2021-09-22 15:00] VITALS: BP 180/56
[2021-09-22 18:00] VITALS: BP 142/54
[2021-09-23] MEDS: SODIUM CHLORIDE 0.9% 1,000 ML IV SCH (03:40)
[2021-09-23] MEDS: METHYL SALICYLATE/MENTHOL CREAM 85GM TOP SCH ×2 (06:00→07:26)
[2021-09-23] MEDS: CLONIDINE 0.1MG TABLET PO SCH ×2 (06:00→13:09)
[2021-09-23] MEDS: BLOOD SUGAR DIAGNOSTIC STRIP TEST SCH ×2 (06:30→11:15)
[2021-09-23] MEDS: GABAPENTIN 100MG CAPSULE PO SCH ×2 (07:09→13:07)
[2021-09-23] MEDS: SODIUM CHLORIDE 45ML SPRAY NS SCH ×3 (07:16→13:05)
[2021-09-23 08:00] VITALS: BP 123/44
[2021-09-23] MEDS: POLYETHYLENE GLYCOL 3350 (17GM) 1 DOSE PACK PO SCH (09:00)
[2021-09-23] MEDS: DOCUSATE SODIUM 100MG CAPSULE PO SCH (09:06)
[2021-09-23] MEDS: CYANOCOBALAMIN 1000MCG/ML VIAL IM SCH (09:06)
[2021-09-23] MEDS: ASCORBIC ACID 500 MG TABLET PO SCH (09:06)
[2021-09-23] MEDS: FERROUS SULFATE 325MG TABLET PO SCH ×2 (09:06→13:06)
[2021-09-23] MEDS: AMLODIPINE 5MG TABLET PO SCH (09:06)
[2021-09-23] MEDS: LIDOCAINE 5% PATCH TOP SCH (09:09)
[2021-09-23] MEDS: ALLOPURINOL 100 MG TABLET PO SCH (09:14)
[2021-09-23] MEDS: DICLOFENAC SODIUM 1% GEL 50GM TOP SCH ×2 (09:26→13:06)
[2021-09-23] MEDS: LIDOCAINE HCL 4% CREAM 76GM TUBE TP SCH ×2 (09:26→13:07)
[2021-09-23] MEDS ORDERED: AZITHROMYCIN 500 MG TABLET PO SCH (12:15)
[2021-09-23 13:51] VITALS: BP 123/44
== END 2021-09-23 12:25 | DRG 91 ==
PROVIDERS: ADMIT Physical Medicine & Rehabilitation Spinal Cord Injury Medicine; ATTEND Specialist
DX: G95.20 Unspecified cord compression (principal); G82.50 Quadriplegia, unspecified; N17.9 Acute kidney failure, unspecified; N18.4 Chronic kidney disease, stage 4 (severe); C94.6 Myelodysplastic disease, not elsewhere classified; I13.0 Hypertensive heart and chronic kidney disease with heart failure and stage 1 through stage 4 chronic kidney disease, or unspecified chronic kidney disease; I50.32 Chronic diastolic (congestive) heart failure; J44.0 Chronic obstructive pulmonary disease with (acute) lower respiratory infection; M19.90 Unspecified osteoarthritis, unspecified site; M48.02 Spinal stenosis, cervical region; M48.061 Spinal stenosis, lumbar region without neurogenic claudication; M54.10 Radiculopathy, site unspecified; D64.9 Anemia, unspecified; E11.22 Type 2 diabetes mellitus with diabetic chronic kidney disease; E11.42 Type 2 diabetes mellitus with diabetic polyneuropathy; E53.8 Deficiency of other specified B group vitamins; E55.9 Vitamin D deficiency, unspecified; E61.1 Iron deficiency; E66.9 Obesity, unspecified; E78.5 Hyperlipidemia, unspecified; E87.5 Hyperkalemia; F03.90 Unspecified dementia, unspecified severity, without behavioral disturbance, psychotic disturbance, mood disturbance, and anxiety; F39 Unspecified mood [affective] disorder; G89.29 Other chronic pain; I25.10 Atherosclerotic heart disease of native coronary artery without angina pectoris; I44.1 Atrioventricular block, second degree; I89.0 Lymphedema, not elsewhere classified; J31.0 Chronic rhinitis; Z96.653 Presence of artificial knee joint, bilateral; M54.50 Low back pain, unspecified; R29.6 Repeated falls; R53.83 Other fatigue; M25.511 Pain in right shoulder; M79.604 Pain in right leg; R00.1 Bradycardia, unspecified; R07.89 Other chest pain; R09.81 Nasal congestion; R26.81 Unsteadiness on feet; R42 Dizziness and giddiness; R53.81 Other malaise; K59.00 Constipation, unspecified; J20.9 Acute bronchitis, unspecified; Z20.822 Contact with and (suspected) exposure to COVID-19; Z87.891 Personal history of nicotine dependence; Z79.4 Long term (current) use of insulin; Z79.899 Other long term (current) drug therapy; Z82.49 Family history of ischemic heart disease and other diseases of the circulatory system; Z86.011 Personal history of benign neoplasm of the brain; Z86.73 Personal history of transient ischemic attack (TIA), and cerebral infarction without residual deficits; Z90.710 Acquired absence of both cervix and uterus; Z95.0 Presence of cardiac pacemaker; Z91.19 Patient's noncompliance with other medical treatment and regimen; Z79.84 Long term (current) use of oral hypoglycemic drugs; Z68.32 Body mass index [BMI] 32.0-32.9, adult; Z88.5 Allergy status to narcotic agent; Z88.8 Allergy status to other drugs, medicaments and biological substances; Z91.018 Allergy to other foods
CPT/HCPCS: 36415; 73600; 73620; 76770; 80048; 80053; 81003; 82270; 82306; 82550; 82962; 83036; 84134; 85025; 87426; 92523; 92610; 93970; 94640; 97110; 97112; 97116; 97163; 97166; 97530; 97535; A6261; J3420; J7030

== ENCOUNTER 2021-11-20 13:42 | Inpatient (IN) | payer MEDICARE, BC ==
[~2021-11-20] VITALS: Ht 162.6 cm; Wt 90.7 kg
[2021-11-20] MEDS ORDERED: METHYLPREDNISOLONE SOD SUCC 125 MG/2 ML VIAL IV STA (15:16)
[2021-11-20] MEDS ORDERED: IPRATROPIUM BROMIDE (0.02%) 0.5MG/2.5ML NEB HHN STA (15:16)
[2021-11-20] MEDS ORDERED: ALBUTEROL (0.083%) 2.5MG/3ML NEB HHN STA (15:16)
[2021-11-20] MEDS ORDERED: MAGNESIUM 2 G PREMIX 50 ML IV ONE (15:30)
[2021-11-20] MEDS ORDERED: NITROGLYCERIN 0.4MG TABLET SL SL PRN (15:30)
[2021-11-20] MEDS ORDERED: ASPIRIN 81MG TABLET PO ONE (15:30)
[2021-11-20 16:08] LABS: CHLORIDE 108 mEq/L (98-107)
[2021-11-20 16:16] LABS: BASOPHILS % 0.4 % (0.0-2.0); EOSINOPHILS % 2.5 % (0.0-5.0); HEMATOCRIT. 34.1 % (36.0-48.0); HEMOGLOBIN. 10.3 g/dL (12.0-16.0); LYMPHOCYTES % 18.5 % (20.0-50.0); MEAN CORPUSCULAR HEMOGLOBIN 29.5 pg (28.0-32.0); MEAN CORPUSCULAR VOLUME 97.5 fL (81.0-99.0); MEAN PLATELET VOLUME 7.7 fl (7.4-10.4); NEUTROPHILS % 70.6 % (40.0-76.0); PLATELET 358 x1000/uL (130-400); RED BLOOD CELL COUNT 3.49 mill/uL (4.2-5.4); RED CELL DISTRIBUTION WIDTH 17.6 % (11.6-14.6)
[2021-11-20] MEDS ORDERED: DEXTROSE 50% WATER 50ML SYRINGE IV PRN ×2 (17:00→22:15)
[2021-11-20] MEDS ORDERED: IPRATROPIUM/ALBUTEROL 0.5-3(2.5)MG/3ML NEB NEB PRN (17:00)
[2021-11-20] MEDS ORDERED: ACETAMINOPHEN 325MG TABLET PO PRN (17:00)
[2021-11-20] MEDS: BLOOD SUGAR DIAGNOSTIC STRIP TEST SCH ×3 (17:00→23:01)
[2021-11-20] MEDS ORDERED: DOCUSATE SODIUM 100MG CAPSULE PO PRN (17:00)
[2021-11-20 17:12] LABS: BG BASE EXCESS -4.3 mmol/L (-2.0-2.0); BG CARBOXYHEMOGLOBIN 0.3 % (0.5-1.5); BG DEOXYHEMOGLOBIN 6.6 % (0.0-5.0); BG HCO3 ACT 21.1 mmol/L (22.0-26.0); BG METHEMOGLOBIN 0.1 % (0.0-1.5); BG OXYGEN SATURATION 93.4 % (92.0-98.5); BG PCO2 39.9 mmHg (35.0-45.0); BG PH 7.341 (7.350-7.450); BG PO2 71.9 mmHg (75.0-100.0); BG SAMPLE SITE RIGHT BRACHIAL; BG TOTAL HEMOGLOBIN 10.5 g/dL (12.0-18.0); BG VENT MODE ROOM AIR
[2021-11-20] MEDS ORDERED: ENOXAPARIN 30MG/0.3ML SYR SUBCUT SCH (17:15)
[2021-11-20] MEDS ORDERED: INSULIN LISPRO 100 UNITS/ML SUBCUT SCH (18:20)
[2021-11-20] MEDS: GABAPENTIN 300MG CAPSULE PO SCH (18:52)
[2021-11-20] MEDS ORDERED: INSULIN GLARGINE 100 UNITS/ML SUBCUT NR (22:15)
[2021-11-20] MEDS: INSULIN LISPRO 100 UNITS/ML SUBCUT SCH (23:00)
[2021-11-20 23:30] VITALS: BP 158/61
[2021-11-21 04:00] VITALS: BP 167/66
[2021-11-21] MEDS: CLONIDINE 0.1MG TABLET PO PRN (06:13)
[2021-11-21] MEDS: INSULIN LISPRO 100 UNITS/ML SUBCUT SCH ×4 (06:19→21:00)
[2021-11-21] MEDS: BLOOD SUGAR DIAGNOSTIC STRIP TEST SCH ×4 (06:19→21:26)
[2021-11-21 06:25] LABS: HEMATOCRIT. 27.6 % (36.0-48.0); MEAN CORPUSCULAR HEMOGLOBIN 29.6 pg (28.0-32.0); MEAN CORPUSCULAR VOLUME 90.9 fL (81.0-99.0); MEAN PLATELET VOLUME 8.1 fl (7.4-10.4); PLATELET 307 x1000/uL (130-400); RED BLOOD CELL COUNT 3.04 mill/uL (4.2-5.4); RED CELL DISTRIBUTION WIDTH 16.8 % (11.6-14.6)
[2021-11-21 08:00] VITALS: BP 142/65
[2021-11-21] MEDS: AMLODIPINE 5MG TABLET PO SCH (08:17)
[2021-11-21] MEDS: GABAPENTIN 300MG CAPSULE PO SCH ×2 (08:17→17:19)
[2021-11-21] MEDS: ALLOPURINOL 300 MG TABLET PO SCH (08:17)
[2021-11-21] MEDS: POLYETHYLENE GLYCOL 3350 (17GM) 1 DOSE PACK PO SCH (08:18)
[2021-11-21] MEDS ORDERED: IPRATROPIUM/ALBUTEROL 0.5-3(2.5)MG/3ML NEB NEB PRN (10:15)
[2021-11-21 12:00] VITALS: BP 130/60
[2021-11-21] MEDS: SULFAMETHOXAZOLE/TRIMETHOPRIM 400/80MG TAB PO SCH ×2 (13:03→21:29)
[2021-11-21] MEDS: ASPIRIN 81MG EC TABLET PO SCH (14:12)
[2021-11-21 14:24] LABS: PLATELET ESTIMATE NORMAL
[2021-11-21 16:00] VITALS: BP 129/48
[2021-11-21 16:05] LABS: CLARITY URINE TURBID (CLEAR); COLOR URINE YELLOW (YELLOW); KETONES URINE NEGATIVE (NEGATIVE); LEUKOCYTE ESTERASE URINE 3+ (NEGATIVE); NITRITE URINE NEGATIVE (NEGATIVE); OCCULT BLOOD URINE NEGATIVE (NEGATIVE); PH URINE >=9.0 (4.5-8.0); PROTEIN URINE 4+ (NEGATIVE); SPECIFIC GRAVITY URINE 1.019 (1.005-1.030); UROBILINOGEN URINE 0.2 E.U./dL (0.2-1.0)
[2021-11-21 20:00] VITALS: BP 142/56
[2021-11-21] MEDS: CARVEDILOL 6.25 MG TABLET PO SCH (21:29)
[2021-11-21] MEDS: INSULIN GLARGINE 100 UNITS/ML SUBCUT SCH (22:00)
[2021-11-22] VITALS: BP 126/54
[2021-11-22 04:00] VITALS: BP 162/74
[2021-11-22] MEDS: BLOOD SUGAR DIAGNOSTIC STRIP TEST SCH ×4 (06:53→20:53)
[2021-11-22] MEDS: INSULIN LISPRO 100 UNITS/ML SUBCUT SCH ×4 (06:53→20:54)
[2021-11-22 07:11] LABS: PARTIAL THROMBOPLASTIN TIME < 21.0 sec (23.4-31.0); PROTHROMBIN TIME 10.6 sec (9.6-11.0)
[2021-11-22 07:27] LABS: BASOPHILS % 0.9 % (0.0-2.0); EOSINOPHILS % 1.5 % (0.0-5.0); HEMATOCRIT. 27.9 % (36.0-48.0); HEMOGLOBIN. 8.9 g/dL (12.0-16.0); LYMPHOCYTES % 23.5 % (20.0-50.0); MEAN CORPUSCULAR HEMOGLOBIN 29.6 pg (28.0-32.0); MEAN CORPUSCULAR VOLUME 92.9 fL (81.0-99.0); MEAN PLATELET VOLUME 8.5 fl (7.4-10.4); MONOCYTES % 11.2 % (2.0-8.0); NEUTROPHILS % 62.9 % (40.0-76.0); PLATELET 301 x1000/uL (130-400); RED BLOOD CELL COUNT 3.01 mill/uL (4.2-5.4)
[2021-11-22 08:00] VITALS: BP 155/73
[2021-11-22] MEDS: GABAPENTIN 300MG CAPSULE PO SCH ×2 (08:15→16:56)
[2021-11-22] MEDS: SULFAMETHOXAZOLE/TRIMETHOPRIM 400/80MG TAB PO SCH ×2 (08:15→20:52)
[2021-11-22] MEDS: AMLODIPINE 5MG TABLET PO SCH (08:15)
[2021-11-22] MEDS: CARVEDILOL 6.25 MG TABLET PO SCH ×2 (08:15→20:53)
[2021-11-22] MEDS: ASPIRIN 81MG EC TABLET PO SCH (08:16)
[2021-11-22] MEDS: ALLOPURINOL 300 MG TABLET PO SCH (08:16)
[2021-11-22] MEDS: POLYETHYLENE GLYCOL 3350 (17GM) 1 DOSE PACK PO SCH (08:16)
[2021-11-22] MEDS ORDERED: REGADENOSON 0.4 MG/5 ML IV ONE ×2 (10:15→12:03)
[2021-11-22 12:00] VITALS: BP 154/55
[2021-11-22] MEDS: ACETAMINOPHEN 500MG TABLET PO PRN (13:38)
[2021-11-22 16:00] VITALS: BP 152/57
[2021-11-22 17:49] LABS: FOLIC ACID (FOLATE) SERUM 4.5 ng/mL (>5.38)
[2021-11-22 20:00] VITALS: BP 124/57
[2021-11-22] MEDS: INSULIN GLARGINE 100 UNITS/ML SUBCUT SCH (20:55)
[2021-11-23] VITALS: BP 117/49
[2021-11-23 04:00] VITALS: BP 142/73
[2021-11-23] MEDS: BLOOD SUGAR DIAGNOSTIC STRIP TEST SCH ×4 (07:04→20:56)
[2021-11-23] MEDS: INSULIN LISPRO 100 UNITS/ML SUBCUT SCH ×4 (07:04→20:55)
[2021-11-23 07:23] LABS: TOTAL IRON BINDING CAPACITY 245 ug/dL (250-450)
[2021-11-23 08:00] VITALS: BP 129/75
[2021-11-23] MEDS: AMLODIPINE 5MG TABLET PO SCH (09:26)
[2021-11-23] MEDS: CARVEDILOL 6.25 MG TABLET PO SCH ×2 (09:26→20:54)
[2021-11-23] MEDS: ALLOPURINOL 300 MG TABLET PO SCH (09:27)
[2021-11-23] MEDS: GABAPENTIN 300MG CAPSULE PO SCH ×2 (09:27→17:57)
[2021-11-23] MEDS: ASPIRIN 81MG EC TABLET PO SCH (09:27)
[2021-11-23] MEDS: SULFAMETHOXAZOLE/TRIMETHOPRIM 400/80MG TAB PO SCH ×2 (09:27→20:54)
[2021-11-23] MEDS: POLYETHYLENE GLYCOL 3350 (17GM) 1 DOSE PACK PO SCH (09:27)
[2021-11-23] MEDS: SODIUM CHLORIDE 0.9% 1,000 ML IV SCH (10:55)
[2021-11-23 12:00] VITALS: BP 141/54
[2021-11-23 16:00] VITALS: BP 139/57
[2021-11-23] MEDS: FOLIC ACID 1MG TABLET PO SCH (17:57)
[2021-11-23 20:00] VITALS: BP 154/58
[2021-11-23] MEDS: INSULIN GLARGINE 100 UNITS/ML SUBCUT SCH (20:56)
[2021-11-24] VITALS: BP 140/44
[2021-11-24 04:00] VITALS: BP 162/68
[2021-11-24] MEDS: SODIUM CHLORIDE 0.9% 1,000 ML IV SCH ×3 (05:07→23:49)
[2021-11-24] MEDS: CLONIDINE 0.1MG TABLET PO PRN (05:17)
[2021-11-24] MEDS: INSULIN LISPRO 100 UNITS/ML SUBCUT SCH ×4 (06:12→21:26)
[2021-11-24] MEDS: BLOOD SUGAR DIAGNOSTIC STRIP TEST SCH ×4 (06:12→21:25)
[2021-11-24 07:17] LABS: BASOPHILS % 0.6 % (0.0-2.0); EOSINOPHILS % 3.3 % (0.0-5.0); HEMATOCRIT. 27.7 % (36.0-48.0); LYMPHOCYTES % 13.1 % (20.0-50.0); MEAN CORPUSCULAR VOLUME 92.8 fL (81.0-99.0); MEAN PLATELET VOLUME 8.1 fl (7.4-10.4); MONOCYTES % 11.1 % (2.0-8.0); NEUTROPHILS % 71.9 % (40.0-76.0); PLATELET 312 x1000/uL (130-400); RED BLOOD CELL COUNT 2.98 mill/uL (4.2-5.4); RED CELL DISTRIBUTION WIDTH 16.7 % (11.6-14.6)
[2021-11-24 08:00] VITALS: BP 128/57
[2021-11-24] MEDS: AMLODIPINE 5MG TABLET PO SCH (08:36)
[2021-11-24] MEDS: ALLOPURINOL 300 MG TABLET PO SCH (08:36)
[2021-11-24] MEDS: FOLIC ACID 1MG TABLET PO SCH (08:36)
[2021-11-24] MEDS: ASPIRIN 81MG EC TABLET PO SCH (08:36)
[2021-11-24] MEDS: GABAPENTIN 300MG CAPSULE PO SCH ×2 (08:36→16:53)
[2021-11-24] MEDS: CARVEDILOL 6.25 MG TABLET PO SCH ×2 (08:36→21:25)
[2021-11-24] MEDS: POLYETHYLENE GLYCOL 3350 (17GM) 1 DOSE PACK PO SCH (08:37)
[2021-11-24] MEDS ORDERED: GENTAMICIN 120MG PREMIX 100 ML IV NR (10:00)
[2021-11-24 12:00] VITALS: BP 144/82
[2021-11-24 16:00] VITALS: BP 140/50
[2021-11-24] MEDS ORDERED: LACTULOSE 20G/30ML UDC PO PRN (17:45)
[2021-11-24 20:00] VITALS: BP 126/72
[2021-11-24] MEDS: INSULIN GLARGINE 100 UNITS/ML SUBCUT SCH (21:26)
[2021-11-25] VITALS: BP 137/56
[2021-11-25 04:00] VITALS: BP 116/67
[2021-11-25] MEDS: INSULIN LISPRO 100 UNITS/ML SUBCUT SCH ×4 (06:07→22:02)
[2021-11-25] MEDS: BLOOD SUGAR DIAGNOSTIC STRIP TEST SCH ×4 (06:07→22:02)
[2021-11-25 06:57] LABS: BASOPHILS % 0.5 % (0.0-2.0); EOSINOPHILS % 4.3 % (0.0-5.0); HEMATOCRIT. 26.3 % (36.0-48.0); HEMOGLOBIN. 8.6 g/dL (12.0-16.0); LYMPHOCYTES % 14.3 % (20.0-50.0); MEAN CORPUSCULAR HEMOGLOBIN 30.6 pg (28.0-32.0); MEAN CORPUSCULAR VOLUME 93.6 fL (81.0-99.0); MEAN PLATELET VOLUME 7.9 fl (7.4-10.4); MONOCYTES % 9.7 % (2.0-8.0); NEUTROPHILS % 71.2 % (40.0-76.0); PLATELET 332 x1000/uL (130-400); RED BLOOD CELL COUNT 2.81 mill/uL (4.2-5.4); RED CELL DISTRIBUTION WIDTH 17.2 % (11.6-14.6)
[2021-11-25 08:00] VITALS: BP 159/63
[2021-11-25] MEDS: POLYETHYLENE GLYCOL 3350 (17GM) 1 DOSE PACK PO SCH (09:00)
[2021-11-25] MEDS: ACETAMINOPHEN 500MG TABLET PO PRN (09:13)
[2021-11-25] MEDS: ASPIRIN 81MG EC TABLET PO SCH (09:14)
[2021-11-25] MEDS: CARVEDILOL 6.25 MG TABLET PO SCH ×2 (09:14→22:11)
[2021-11-25] MEDS: ALLOPURINOL 300 MG TABLET PO SCH (09:14)
[2021-11-25] MEDS: GABAPENTIN 300MG CAPSULE PO SCH ×2 (09:14→16:47)
[2021-11-25] MEDS: AMLODIPINE 5MG TABLET PO SCH (09:14)
[2021-11-25] MEDS: FOLIC ACID 1MG TABLET PO SCH (09:14)
[2021-11-25] MEDS ORDERED: GENTAMICIN SULFATE 60 MG in SODIUM CHLORIDE 0.9% 50 ML IV SCH (10:00)
[2021-11-25] MEDS ORDERED: DICLOFENAC SODIUM 1% GEL 50GM TOP PRN (11:00)
[2021-11-25 12:00] VITALS: BP 140/90
[2021-11-25 16:00] VITALS: BP 143/72
[2021-11-25 20:00] VITALS: BP 161/53
[2021-11-25] MEDS: SUCRALFATE 1G TABLET PO SCH ×2 (22:10→22:20)
[2021-11-25] MEDS: LACTULOSE 20G/30ML UDC PO SCH (22:10)
[2021-11-25] MEDS: INSULIN GLARGINE 100 UNITS/ML SUBCUT SCH (22:12)
[2021-11-26] VITALS (7 sets, daily range): BP systolic 122–170; BP diastolic 52–73
[2021-11-26] MEDS: CLONIDINE 0.1MG TABLET PO PRN ×2 (04:57→23:59)
[2021-11-26] MEDS: INSULIN LISPRO 100 UNITS/ML SUBCUT SCH ×4 (06:19→21:48)
[2021-11-26] MEDS: BLOOD SUGAR DIAGNOSTIC STRIP TEST SCH ×4 (06:19→20:28)
[2021-11-26] MEDS: SODIUM CHLORIDE 0.9% 1,000 ML IV SCH ×2 (06:20→13:22)
[2021-11-26] MEDS: SUCRALFATE 1G TABLET PO SCH ×4 (06:20→21:47)
[2021-11-26] MEDS: OMEPRAZOLE 20MG CAPSULE EXTENDED RELEASE PO SCH (06:21)
[2021-11-26 08:06] LABS: BASOPHILS % 0.4 % (0.0-2.0); EOSINOPHILS % 4.5 % (0.0-5.0); HEMATOCRIT. 24.2 % (36.0-48.0); HEMOGLOBIN. 7.9 g/dL (12.0-16.0); MEAN CORPUSCULAR VOLUME 91.9 fL (81.0-99.0); MEAN PLATELET VOLUME 8.1 fl (7.4-10.4); MONOCYTES % 11.3 % (2.0-8.0); NEUTROPHILS % 70.8 % (40.0-76.0); PLATELET 290 x1000/uL (130-400); RED BLOOD CELL COUNT 2.64 mill/uL (4.2-5.4)
[2021-11-26] MEDS: FOLIC ACID 1MG TABLET PO SCH (09:13)
[2021-11-26] MEDS: ALLOPURINOL 300 MG TABLET PO SCH (09:13)
[2021-11-26] MEDS: ASPIRIN 81MG EC TABLET PO SCH (09:13)
[2021-11-26] MEDS: GABAPENTIN 300MG CAPSULE PO SCH ×2 (09:13→17:34)
[2021-11-26] MEDS: AMLODIPINE 5MG TABLET PO SCH (09:13)
[2021-11-26] MEDS: CARVEDILOL 6.25 MG TABLET PO SCH ×2 (09:14→21:47)
[2021-11-26] MEDS ORDERED: GENTAMICIN 80MG PREMIX 100 ML IV SCH (12:00)
[2021-11-26] MEDS: GENTAMICIN 80MG PREMIX 100 ML IV SCH (14:57)
[2021-11-26] MEDS: LACTULOSE 20G/30ML UDC PO SCH ×2 (21:00→21:47)
[2021-11-26] MEDS: INSULIN GLARGINE 100 UNITS/ML SUBCUT SCH (21:47)
[2021-11-27] VITALS (7 sets, daily range): BP systolic 124–186; BP diastolic 52–78
[2021-11-27] MEDS: BLOOD SUGAR DIAGNOSTIC STRIP TEST SCH ×4 (06:25→21:40)
[2021-11-27] MEDS: INSULIN LISPRO 100 UNITS/ML SUBCUT SCH ×4 (06:25→21:39)
[2021-11-27 07:46] LABS: BASOPHILS % 0.4 % (0.0-2.0); EOSINOPHILS % 4.7 % (0.0-5.0); LYMPHOCYTES % 16.6 % (20.0-50.0); MEAN CORPUSCULAR HEMOGLOBIN 29.9 pg (28.0-32.0); MEAN PLATELET VOLUME 8.1 fl (7.4-10.4); MONOCYTES % 10.2 % (2.0-8.0); NEUTROPHILS % 68.1 % (40.0-76.0); PLATELET 357 x1000/uL (130-400); RED BLOOD CELL COUNT 3.01 mill/uL (4.2-5.4); RED CELL DISTRIBUTION WIDTH 16.9 % (11.6-14.6)
[2021-11-27] MEDS: GABAPENTIN 300MG CAPSULE PO SCH ×2 (08:17→16:31)
[2021-11-27] MEDS: CARVEDILOL 6.25 MG TABLET PO SCH ×2 (08:18→21:40)
[2021-11-27] MEDS: ASPIRIN 81MG EC TABLET PO SCH (08:18)
[2021-11-27] MEDS: SUCRALFATE 1G TABLET PO SCH ×4 (08:18→21:39)
[2021-11-27] MEDS: ALLOPURINOL 300 MG TABLET PO SCH (08:18)
[2021-11-27] MEDS: OMEPRAZOLE 20MG CAPSULE EXTENDED RELEASE PO SCH (08:18)
[2021-11-27] MEDS: CLONIDINE 0.1MG TABLET PO PRN (08:19)
[2021-11-27] MEDS: FOLIC ACID 1MG TABLET PO SCH ×2 (08:19→08:35)
[2021-11-27] MEDS: AMLODIPINE 5MG TABLET PO SCH (08:19)
[2021-11-27] MEDS: GENTAMICIN 80MG PREMIX 100 ML IV SCH (13:21)
[2021-11-27 18:05] LABS: CLARITY URINE CLEAR (CLEAR); COLOR URINE YELLOW (YELLOW); KETONES URINE NEGATIVE (NEGATIVE); LEUKOCYTE ESTERASE URINE TRACE (NEGATIVE); NITRITE URINE NEGATIVE (NEGATIVE); OCCULT BLOOD URINE NEGATIVE (NEGATIVE); PH URINE 5.5 (4.5-8.0); PROTEIN URINE 1+ (NEGATIVE); SPECIFIC GRAVITY URINE 1.013 (1.005-1.030); UROBILINOGEN URINE 0.2 E.U./dL (0.2-1.0)
[2021-11-27] MEDS: LACTULOSE 20G/30ML UDC PO SCH ×2 (21:00→21:40)
[2021-11-27] MEDS: INSULIN GLARGINE 100 UNITS/ML SUBCUT SCH (21:37)
[2021-11-28] VITALS: BP 120/60
[2021-11-28 04:00] VITALS: BP 142/59
[2021-11-28] MEDS: BLOOD SUGAR DIAGNOSTIC STRIP TEST SCH ×4 (06:34→19:46)
[2021-11-28] MEDS: SUCRALFATE 1G TABLET PO SCH ×4 (06:34→21:33)
[2021-11-28] MEDS: OMEPRAZOLE 20MG CAPSULE EXTENDED RELEASE PO SCH (06:34)
[2021-11-28] MEDS: INSULIN LISPRO 100 UNITS/ML SUBCUT SCH ×4 (06:47→21:35)
[2021-11-28 07:29] LABS: BASOPHILS % 0.6 % (0.0-2.0); EOSINOPHILS % 4.6 % (0.0-5.0); HEMATOCRIT. 24.4 % (36.0-48.0); LYMPHOCYTES % 13.7 % (20.0-50.0); MEAN PLATELET VOLUME 8.3 fl (7.4-10.4); MONOCYTES % 11.7 % (2.0-8.0); NEUTROPHILS % 69.4 % (40.0-76.0); PLATELET 322 x1000/uL (130-400); RED BLOOD CELL COUNT 2.65 mill/uL (4.2-5.4); RED CELL DISTRIBUTION WIDTH 16.8 % (11.6-14.6)
[2021-11-28 07:52] VITALS: BP 144/65
[2021-11-28] MEDS: GABAPENTIN 300MG CAPSULE PO SCH ×2 (08:16→15:43)
[2021-11-28] MEDS: FOLIC ACID 1MG TABLET PO SCH (08:16)
[2021-11-28] MEDS: ALLOPURINOL 300 MG TABLET PO SCH (08:17)
[2021-11-28] MEDS: CARVEDILOL 6.25 MG TABLET PO SCH ×2 (08:17→21:33)
[2021-11-28] MEDS: ASPIRIN 81MG EC TABLET PO SCH (08:17)
[2021-11-28] MEDS: AMLODIPINE 5MG TABLET PO SCH (08:17)
[2021-11-28 11:50] VITALS: BP 138/53
[2021-11-28] MEDS: GENTAMICIN 80MG PREMIX 100 ML IV SCH (13:22)
[2021-11-28 16:00] VITALS: BP 150/47
[2021-11-28 20:00] VITALS: BP 159/55
[2021-11-28] MEDS: LACTULOSE 20G/30ML UDC PO SCH (21:00)
[2021-11-28] MEDS: INSULIN GLARGINE 100 UNITS/ML SUBCUT SCH (21:34)
[2021-11-29] VITALS: BP 127/58
[2021-11-29 04:00] VITALS: BP 136/54
[2021-11-29] MEDS: SUCRALFATE 1G TABLET PO SCH ×4 (05:43→21:37)
[2021-11-29] MEDS: OMEPRAZOLE 20MG CAPSULE EXTENDED RELEASE PO SCH (05:43)
[2021-11-29] MEDS: INSULIN LISPRO 100 UNITS/ML SUBCUT SCH ×4 (05:46→21:37)
[2021-11-29] MEDS: BLOOD SUGAR DIAGNOSTIC STRIP TEST SCH ×4 (05:46→20:14)
[2021-11-29 06:35] LABS: BASOPHILS % 0.8 % (0.0-2.0); EOSINOPHILS % 4.1 % (0.0-5.0); HEMATOCRIT. 27.8 % (36.0-48.0); HEMOGLOBIN. 9.1 g/dL (12.0-16.0); LYMPHOCYTES % 16.6 % (20.0-50.0); MEAN CORPUSCULAR VOLUME 91.2 fL (81.0-99.0); MEAN PLATELET VOLUME 8.3 fl (7.4-10.4); MONOCYTES % 12.2 % (2.0-8.0); NEUTROPHILS % 66.3 % (40.0-76.0); PLATELET 361 x1000/uL (130-400); RED BLOOD CELL COUNT 3.05 mill/uL (4.2-5.4); RED CELL DISTRIBUTION WIDTH 16.7 % (11.6-14.6)
[2021-11-29 07:38] LABS: GENTAMICIN RANDOM 1.6 ug/mL
[2021-11-29 08:00] VITALS: BP 166/67
[2021-11-29] MEDS: GABAPENTIN 300MG CAPSULE PO SCH ×2 (08:44→17:40)
[2021-11-29] MEDS: ALLOPURINOL 300 MG TABLET PO SCH (08:44)
[2021-11-29] MEDS: ASPIRIN 81MG EC TABLET PO SCH (08:44)
[2021-11-29] MEDS: CARVEDILOL 6.25 MG TABLET PO SCH ×2 (08:44→21:37)
[2021-11-29] MEDS: FOLIC ACID 1MG TABLET PO SCH (08:45)
[2021-11-29] MEDS: AMLODIPINE 5MG TABLET PO SCH (08:45)
[2021-11-29] MEDS: CLONIDINE 0.1MG TABLET PO PRN (08:45)
[2021-11-29 12:00] VITALS: BP 151/36
[2021-11-29] MEDS: GENTAMICIN 80MG PREMIX 100 ML IV SCH (14:13)
[2021-11-29 16:00] VITALS: BP 126/50
[2021-11-29 20:00] VITALS: BP 147/59
[2021-11-29] MEDS: LACTULOSE 20G/30ML UDC PO SCH (21:00)
[2021-11-29] MEDS: INSULIN GLARGINE 100 UNITS/ML SUBCUT SCH (21:37)
== END 2021-11-29 22:15 | DRG 291 ==
LOC: ER 13:50 → 8WST 16:42 → ENRESERV 19:50 → 8WST 21:18
PROVIDERS: ADMIT Specialist; ATTEND Specialist
PROC: 4A02XM4 Measurement of Cardiac Total Activity, External Approach (ICD-10-PCS; principal; 2021-11-22)
PROC: 3E033HZ Introduction of Radioactive Substance into Peripheral Vein, Percutaneous Approach (ICD-10-PCS; 2021-11-22)
DX: I13.0 Hypertensive heart and chronic kidney disease with heart failure and stage 1 through stage 4 chronic kidney disease, or unspecified chronic kidney disease (principal); G82.50 Quadriplegia, unspecified; I50.31 Acute diastolic (congestive) heart failure; N17.9 Acute kidney failure, unspecified; N39.0 Urinary tract infection, site not specified; I25.10 Atherosclerotic heart disease of native coronary artery without angina pectoris; I42.9 Cardiomyopathy, unspecified; J44.9 Chronic obstructive pulmonary disease, unspecified; E11.22 Type 2 diabetes mellitus with diabetic chronic kidney disease; N18.32 Chronic kidney disease, stage 3b; E53.8 Deficiency of other specified B group vitamins; E78.5 Hyperlipidemia, unspecified; D63.1 Anemia in chronic kidney disease; E11.42 Type 2 diabetes mellitus with diabetic polyneuropathy; Z20.822 Contact with and (suspected) exposure to COVID-19; E66.9 Obesity, unspecified; M19.90 Unspecified osteoarthritis, unspecified site; R26.9 Unspecified abnormalities of gait and mobility; D64.9 Anemia, unspecified; M48.05 Spinal stenosis, thoracolumbar region; Z96.653 Presence of artificial knee joint, bilateral; M54.10 Radiculopathy, site unspecified; Z95.0 Presence of cardiac pacemaker; Z88.8 Allergy status to other drugs, medicaments and biological substances; Z79.899 Other long term (current) drug therapy; Z90.710 Acquired absence of both cervix and uterus; Z88.0 Allergy status to penicillin; Z68.34 Body mass index [BMI] 34.0-34.9, adult; Z79.82 Long term (current) use of aspirin; Z86.011 Personal history of benign neoplasm of the brain
CPT/HCPCS: 36415; 36600; 71045; 78452; 80048; 80053; 80061; 80170; 81003; 82270; 82375; 82607; 82728; 82746; 82805; 82962; 83036; 83540; 83550; 83605; 83735; 83880; 84443; 84484; 85025; 85044; 87077; 87186; 87426; 93005; 93017; 93306; 93970; 94640; 97162; 97166; 99285; A9500; J1580; J1815; J2785; J2930; J3475; J7030

== ENCOUNTER 2021-11-29 22:15 | Inpatient (IN) | payer MEDICARE, BC ==
[~2021-11-29] VITALS: Ht 162.6 cm; Wt 90.7 kg
[2021-11-29 23:00] VITALS: BP 141/47
[2021-11-30] VITALS: BP 142/49
[2021-11-30] MEDS ORDERED: LACTULOSE 20G/30ML UDC PO PRN
[2021-11-30] MEDS ORDERED: CLONIDINE 0.1MG TABLET PO PRN (00:15)
[2021-11-30] MEDS ORDERED: DEXTROSE 50% WATER 50ML SYRINGE IV PRN (00:15)
[2021-11-30] MEDS ORDERED: IPRATROPIUM/ALBUTEROL 0.5-3(2.5)MG/3ML NEB HHN PRN (00:15)
[2021-11-30] MEDS ORDERED: DOCUSATE SODIUM 100MG CAPSULE PO PRN (00:30)
[2021-11-30] MEDS: BLOOD SUGAR DIAGNOSTIC STRIP TEST SCH ×4 (06:30→20:23)
[2021-11-30] MEDS: INSULIN LISPRO 100 UNITS/ML SUBCUT SCH ×4 (06:54→20:46)
[2021-11-30] MEDS: OMEPRAZOLE 20MG CAPSULE EXTENDED RELEASE PO SCH (07:03)
[2021-11-30] MEDS: SUCRALFATE 1 G/10 ML UDC PO SCH ×4 (07:04→20:24)
[2021-11-30 07:13] LABS: BASOPHILS % 0.5 % (0.0-2.0); EOSINOPHILS % 3.1 % (0.0-5.0); HEMATOCRIT. 25.9 % (36.0-48.0); HEMOGLOBIN. 8.4 g/dL (12.0-16.0); LYMPHOCYTES % 11.3 % (20.0-50.0); MEAN CORPUSCULAR VOLUME 92.1 fL (81.0-99.0); MEAN PLATELET VOLUME 7.6 fl (7.4-10.4); MONOCYTES % 10.4 % (2.0-8.0); NEUTROPHILS % 74.7 % (40.0-76.0); PLATELET 335 x1000/uL (130-400); RED BLOOD CELL COUNT 2.82 mill/uL (4.2-5.4); RED CELL DISTRIBUTION WIDTH 16.7 % (11.6-14.6)
[2021-11-30 07:58] LABS: CHLORIDE 113 mEq/L (98-107)
[2021-11-30 08:00] VITALS: BP 123/63
[2021-11-30] MEDS: ASPIRIN 81MG TABLET PO SCH (10:17)
[2021-11-30] MEDS: DICLOFENAC SODIUM 1% GEL 50GM TOP SCH ×4 (10:17→22:03)
[2021-11-30] MEDS: FOLIC ACID 1MG TABLET PO SCH (10:17)
[2021-11-30] MEDS: AMLODIPINE 5MG TABLET PO SCH (10:18)
[2021-11-30] MEDS: CARVEDILOL 6.25 MG TABLET PO SCH ×2 (10:18→20:20)
[2021-11-30] MEDS: GABAPENTIN 300MG CAPSULE PO SCH ×2 (10:19→18:30)
[2021-11-30] MEDS: ALLOPURINOL 300 MG TABLET PO SCH (12:56)
[2021-11-30] MEDS: ACETAMINOPHEN 500MG TABLET PO PRN (12:56)
[2021-11-30] MEDS ORDERED: GENTAMICIN 80MG PREMIX 100 ML IV SCH (15:00)
[2021-11-30] MEDS ORDERED: SODIUM CHLORIDE 0.9% 1,000 ML IV ONE (19:00)
[2021-11-30 20:00] VITALS: BP 158/59
[2021-11-30] MEDS: INSULIN GLARGINE 100 UNITS/ML SUBCUT SCH (22:00)
[2021-12-01] MEDS ORDERED: GENTAMICIN 80MG PREMIX 100 ML IV SCH
[2021-12-01] MEDS: OMEPRAZOLE 20MG CAPSULE EXTENDED RELEASE PO SCH ×2 (05:38→05:44)
[2021-12-01] MEDS: SUCRALFATE 1 G/10 ML UDC PO SCH ×4 (05:38→20:45)
[2021-12-01] MEDS: BLOOD SUGAR DIAGNOSTIC STRIP TEST SCH ×4 (05:43→21:15)
[2021-12-01] MEDS: INSULIN LISPRO 100 UNITS/ML SUBCUT SCH ×4 (05:44→21:20)
[2021-12-01 06:35] LABS: BASOPHILS % 0.7 % (0.0-2.0); EOSINOPHILS % 4.6 % (0.0-5.0); HEMATOCRIT. 23.3 % (36.0-48.0); HEMOGLOBIN. 7.6 g/dL (12.0-16.0); LYMPHOCYTES % 23.4 % (20.0-50.0); MEAN CORPUSCULAR HEMOGLOBIN 30.1 pg (28.0-32.0); MEAN CORPUSCULAR VOLUME 92.2 fL (81.0-99.0); MEAN PLATELET VOLUME 8.1 fl (7.4-10.4); MONOCYTES % 12.6 % (2.0-8.0); NEUTROPHILS % 58.7 % (40.0-76.0); PLATELET 324 x1000/uL (130-400); RED BLOOD CELL COUNT 2.52 mill/uL (4.2-5.4); RED CELL DISTRIBUTION WIDTH 16.5 % (11.6-14.6)
[2021-12-01 06:53] LABS: FERRITIN 154 ng/mL (10-291)
[2021-12-01 07:40] LABS: FOLIC ACID (FOLATE) SERUM >20 ng/mL ng/mL (>5.38); VITAMIN B12 SERUM 774 pg/mL (211-911)
[2021-12-01 08:00] VITALS: BP 138/77
[2021-12-01] MEDS: FERROUS SULFATE 325MG TABLET PO SCH ×3 (09:00→18:02)
[2021-12-01] MEDS: ASPIRIN 81MG TABLET PO SCH (09:32)
[2021-12-01] MEDS: ALLOPURINOL 300 MG TABLET PO SCH (09:32)
[2021-12-01] MEDS: FOLIC ACID 1MG TABLET PO SCH (09:32)
[2021-12-01] MEDS: GABAPENTIN 300MG CAPSULE PO SCH ×2 (09:32→18:02)
[2021-12-01] MEDS: CARVEDILOL 6.25 MG TABLET PO SCH ×2 (09:33→20:45)
[2021-12-01] MEDS: AMLODIPINE 5MG TABLET PO SCH (09:33)
[2021-12-01] MEDS: DICLOFENAC SODIUM 1% GEL 50GM TOP SCH ×4 (09:33→20:45)
[2021-12-01] MEDS: ACETAMINOPHEN 500MG TABLET PO PRN (09:38)
[2021-12-01] MEDS: ASCORBIC ACID 500 MG TABLET PO SCH (09:50)
[2021-12-01] MEDS: SODIUM POLYSTYRENE SULFONATE 15 G/60 ML BOT PO NR ×2 (15:30→18:44)
[2021-12-01 20:11] VITALS: BP 130/52
[2021-12-01] MEDS: INSULIN GLARGINE 100 UNITS/ML SUBCUT SCH (21:20)
[2021-12-02] MEDS: OMEPRAZOLE 20MG CAPSULE EXTENDED RELEASE PO SCH (06:20)
[2021-12-02] MEDS: SUCRALFATE 1 G/10 ML UDC PO SCH ×4 (06:20→21:00)
[2021-12-02] MEDS: INSULIN LISPRO 100 UNITS/ML SUBCUT SCH ×4 (06:25→21:56)
[2021-12-02] MEDS: BLOOD SUGAR DIAGNOSTIC STRIP TEST SCH ×4 (06:25→21:21)
[2021-12-02 06:37] LABS: BASOPHILS % 0.5 % (0.0-2.0); EOSINOPHILS % 4.9 % (0.0-5.0); HEMATOCRIT. 24.3 % (36.0-48.0); LYMPHOCYTES % 18.3 % (20.0-50.0); MEAN CORPUSCULAR HEMOGLOBIN 30.2 pg (28.0-32.0); MEAN CORPUSCULAR VOLUME 92.4 fL (81.0-99.0); MEAN PLATELET VOLUME 7.9 fl (7.4-10.4); MONOCYTES % 11.5 % (2.0-8.0); NEUTROPHILS % 64.8 % (40.0-76.0); PLATELET 327 x1000/uL (130-400); RED BLOOD CELL COUNT 2.63 mill/uL (4.2-5.4); RED CELL DISTRIBUTION WIDTH 16.6 % (11.6-14.6)
[2021-12-02 08:00] VITALS: BP 164/70
[2021-12-02] MEDS: DICLOFENAC SODIUM 1% GEL 50GM TOP SCH ×4 (09:00→21:56)
[2021-12-02] MEDS: FOLIC ACID 1MG TABLET PO SCH (09:09)
[2021-12-02] MEDS: ASPIRIN 81MG TABLET PO SCH (09:12)
[2021-12-02] MEDS: GABAPENTIN 300MG CAPSULE PO SCH ×2 (09:12→16:56)
[2021-12-02] MEDS: ASCORBIC ACID 500 MG TABLET PO SCH (09:12)
[2021-12-02] MEDS: AMLODIPINE 5MG TABLET PO SCH (09:13)
[2021-12-02] MEDS: FERROUS SULFATE 325MG TABLET PO SCH ×3 (09:13→17:00)
[2021-12-02] MEDS: ALLOPURINOL 300 MG TABLET PO SCH (09:13)
[2021-12-02] MEDS: CARVEDILOL 6.25 MG TABLET PO SCH ×2 (09:15→21:13)
[2021-12-02] MEDS: SODIUM POLYSTYRENE SULFONATE 15 G/60 ML BOT PO SCH ×2 (11:30→14:27)
[2021-12-02] MEDS ORDERED: SODIUM CHLORIDE 0.9% 1,000 ML IV SCH (19:00)
[2021-12-02 20:00] VITALS: BP 156/58
[2021-12-02] MEDS: INSULIN GLARGINE 100 UNITS/ML SUBCUT SCH (21:55)
[2021-12-03] MEDS: OMEPRAZOLE 20MG CAPSULE EXTENDED RELEASE PO SCH (06:12)
[2021-12-03 06:52] LABS: BASOPHILS % 0.6 % (0.0-2.0); EOSINOPHILS % 3.8 % (0.0-5.0); HEMATOCRIT. 23.4 % (36.0-48.0); HEMOGLOBIN. 7.5 g/dL (12.0-16.0); LYMPHOCYTES % 18.5 % (20.0-50.0); MEAN CORPUSCULAR HEMOGLOBIN 29.8 pg (28.0-32.0); MEAN CORPUSCULAR VOLUME 92.7 fL (81.0-99.0); MEAN PLATELET VOLUME 7.8 fl (7.4-10.4); MONOCYTES % 10.2 % (2.0-8.0); NEUTROPHILS % 66.9 % (40.0-76.0); PLATELET 318 x1000/uL (130-400); RED BLOOD CELL COUNT 2.53 mill/uL (4.2-5.4); RED CELL DISTRIBUTION WIDTH 16.6 % (11.6-14.6)
[2021-12-03] MEDS: BLOOD SUGAR DIAGNOSTIC STRIP TEST SCH ×4 (07:00→21:54)
[2021-12-03] MEDS: SUCRALFATE 1 G/10 ML UDC PO SCH ×4 (07:00→21:00)
[2021-12-03 08:00] VITALS: BP 151/61
[2021-12-03] MEDS: INSULIN LISPRO 100 UNITS/ML SUBCUT SCH ×4 (09:00→21:52)
[2021-12-03] MEDS: FERROUS SULFATE 325MG TABLET PO SCH ×3 (09:00→17:00)
[2021-12-03] MEDS: GABAPENTIN 300MG CAPSULE PO SCH ×2 (09:03→17:40)
[2021-12-03] MEDS: ALLOPURINOL 300 MG TABLET PO SCH (09:04)
[2021-12-03] MEDS: ASPIRIN 81MG TABLET PO SCH (09:04)
[2021-12-03] MEDS: CARVEDILOL 6.25 MG TABLET PO SCH ×2 (09:04→20:48)
[2021-12-03] MEDS: ASCORBIC ACID 500 MG TABLET PO SCH (09:05)
[2021-12-03] MEDS: AMLODIPINE 5MG TABLET PO SCH ×2 (09:05→20:49)
[2021-12-03] MEDS: FOLIC ACID 1MG TABLET PO SCH (09:34)
[2021-12-03] MEDS: DICLOFENAC SODIUM 1% GEL 50GM TOP SCH ×4 (09:37→21:55)
[2021-12-03] MEDS: ACETAMINOPHEN 500MG TABLET PO PRN (11:20)
[2021-12-03] MEDS: INSULIN GLARGINE 100 UNITS/ML SUBCUT SCH (21:53)
[2021-12-04] MEDS: OMEPRAZOLE 20MG CAPSULE EXTENDED RELEASE PO SCH (05:48)
[2021-12-04] MEDS: BLOOD SUGAR DIAGNOSTIC STRIP TEST SCH ×4 (05:48→21:38)
[2021-12-04] MEDS: SUCRALFATE 1 G/10 ML UDC PO SCH ×4 (06:30→21:36)
[2021-12-04] MEDS: INSULIN LISPRO 100 UNITS/ML SUBCUT SCH ×4 (06:34→21:00)
[2021-12-04 08:00] VITALS: BP 130/56
[2021-12-04] MEDS: DICLOFENAC SODIUM 1% GEL 50GM TOP SCH ×4 (09:00→21:42)
[2021-12-04] MEDS: FERROUS SULFATE 325MG TABLET PO SCH ×4 (09:00→17:00)
[2021-12-04] MEDS: ASPIRIN 81MG TABLET PO SCH (09:05)
[2021-12-04] MEDS: ALLOPURINOL 300 MG TABLET PO SCH (09:05)
[2021-12-04] MEDS: FOLIC ACID 1MG TABLET PO SCH (09:05)
[2021-12-04] MEDS: AMLODIPINE 5MG TABLET PO SCH ×2 (09:05→21:38)
[2021-12-04] MEDS: ASCORBIC ACID 500 MG TABLET PO SCH (09:05)
[2021-12-04] MEDS: CARVEDILOL 6.25 MG TABLET PO SCH ×2 (09:07→21:37)
[2021-12-04] MEDS: GABAPENTIN 300MG CAPSULE PO SCH ×2 (09:08→17:45)
[2021-12-04 13:06] LABS: KAPPA/LAMBDA RATIO 3.18 (0.26-1.65); LAMBDA LT CHAINS FREE SERUM 33.7 mg/L (5.7-26.3)
[2021-12-04 20:00] VITALS: BP 140/52
[2021-12-04] MEDS: INSULIN GLARGINE 100 UNITS/ML SUBCUT SCH (23:01)
[2021-12-05] MEDS: BLOOD SUGAR DIAGNOSTIC STRIP TEST SCH ×4 (05:47→21:09)
[2021-12-05] MEDS: SUCRALFATE 1 G/10 ML UDC PO SCH ×4 (05:48→21:00)
[2021-12-05] MEDS: OMEPRAZOLE 20MG CAPSULE EXTENDED RELEASE PO SCH (06:16)
[2021-12-05 06:32] LABS: BASOPHILS % 0.6 % (0.0-2.0); HEMATOCRIT. 21.7 % (36.0-48.0); LYMPHOCYTES % 19.9 % (20.0-50.0); MEAN CORPUSCULAR VOLUME 92.4 fL (81.0-99.0); MEAN PLATELET VOLUME 8.4 fl (7.4-10.4); MONOCYTES % 10.3 % (2.0-8.0); NEUTROPHILS % 65.2 % (40.0-76.0); PLATELET 317 x1000/uL (130-400); RED BLOOD CELL COUNT 2.35 mill/uL (4.2-5.4); RED CELL DISTRIBUTION WIDTH 16.4 % (11.6-14.6)
[2021-12-05 08:00] VITALS: BP 160/58
[2021-12-05] MEDS: INSULIN LISPRO 100 UNITS/ML SUBCUT SCH ×4 (09:00→21:00)
[2021-12-05] MEDS: FOLIC ACID 1MG TABLET PO SCH (09:34)
[2021-12-05] MEDS: ASPIRIN 81MG TABLET PO SCH (09:34)
[2021-12-05] MEDS: ALLOPURINOL 300 MG TABLET PO SCH (09:35)
[2021-12-05] MEDS: FERROUS SULFATE 325MG TABLET PO SCH ×3 (09:35→17:38)
[2021-12-05] MEDS: CARVEDILOL 6.25 MG TABLET PO SCH ×2 (09:35→21:08)
[2021-12-05] MEDS: GABAPENTIN 300MG CAPSULE PO SCH ×2 (09:35→17:38)
[2021-12-05] MEDS: AMLODIPINE 5MG TABLET PO SCH ×2 (09:35→21:08)
[2021-12-05] MEDS: ASCORBIC ACID 500 MG TABLET PO SCH (09:35)
[2021-12-05] MEDS: DICLOFENAC SODIUM 1% GEL 50GM TOP SCH ×4 (09:36→21:09)
[2021-12-05 10:41] LABS: HEMATOCRIT 24.4 % (36.0-48.0); HEMOGLOBIN 7.8 g/dL (12.0-16.0)
[2021-12-05] MEDS ORDERED: SODIUM CHLORIDE 0.45% 1,000 ML IV SCH (18:00)
[2021-12-05 19:11] LABS: 25-HYDROXY VITAMIN D3 9.9 ng/mL (.)
[2021-12-05 20:54] VITALS: BP 153/64
[2021-12-05] MEDS: INSULIN GLARGINE 100 UNITS/ML SUBCUT SCH (21:54)
[2021-12-06] MEDS: SUCRALFATE 1 G/10 ML UDC PO SCH ×4 (06:04→21:00)
[2021-12-06] MEDS: BLOOD SUGAR DIAGNOSTIC STRIP TEST SCH ×4 (06:10→21:27)
[2021-12-06] MEDS: OMEPRAZOLE 20MG CAPSULE EXTENDED RELEASE PO SCH (06:10)
[2021-12-06 06:46] LABS: BASOPHILS % 0.5 % (0.0-2.0); HEMATOCRIT. 21.6 % (36.0-48.0); LYMPHOCYTES % 13.9 % (20.0-50.0); MEAN CORPUSCULAR VOLUME 92.7 fL (81.0-99.0); NEUTROPHILS % 72.6 % (40.0-76.0); PLATELET 311 x1000/uL (130-400); RED BLOOD CELL COUNT 2.33 mill/uL (4.2-5.4); RED CELL DISTRIBUTION WIDTH 16.6 % (11.6-14.6)
[2021-12-06 08:00] VITALS: BP 126/60
[2021-12-06] MEDS: INSULIN LISPRO 100 UNITS/ML SUBCUT SCH ×4 (09:00→21:00)
[2021-12-06] MEDS: CARVEDILOL 6.25 MG TABLET PO SCH ×2 (09:47→21:40)
[2021-12-06] MEDS: GABAPENTIN 300MG CAPSULE PO SCH ×2 (09:47→13:52)
[2021-12-06] MEDS: FERROUS SULFATE 325MG TABLET PO SCH ×3 (09:47→17:04)
[2021-12-06] MEDS: ALLOPURINOL 300 MG TABLET PO SCH (09:48)
[2021-12-06] MEDS: AMLODIPINE 5MG TABLET PO SCH ×2 (09:48→21:40)
[2021-12-06] MEDS: ASPIRIN 81MG TABLET PO SCH (09:48)
[2021-12-06] MEDS: FOLIC ACID 1MG TABLET PO SCH (09:48)
[2021-12-06] MEDS: DICLOFENAC SODIUM 1% GEL 50GM TOP SCH ×4 (09:51→21:40)
[2021-12-06] MEDS: ASCORBIC ACID 500 MG TABLET PO SCH (09:54)
[2021-12-06] MEDS: ACETAMINOPHEN 500MG TABLET PO PRN (17:05)
[2021-12-06 20:00] VITALS: BP 149/66
[2021-12-06] MEDS: INSULIN GLARGINE 100 UNITS/ML SUBCUT SCH (21:41)
[2021-12-07 00:38] VITALS: BP 161/69
[2021-12-07] MEDS: SUCRALFATE 1 G/10 ML UDC PO SCH ×4 (06:18→20:26)
[2021-12-07] MEDS: BLOOD SUGAR DIAGNOSTIC STRIP TEST SCH ×4 (06:18→20:37)
[2021-12-07] MEDS: OMEPRAZOLE 20MG CAPSULE EXTENDED RELEASE PO SCH (06:18)
[2021-12-07] MEDS: INSULIN LISPRO 100 UNITS/ML SUBCUT SCH ×4 (06:33→20:37)
[2021-12-07 08:00] VITALS: BP 149/52
[2021-12-07] MEDS: DICLOFENAC SODIUM 1% GEL 50GM TOP SCH ×4 (09:00→20:31)
[2021-12-07] MEDS: FERROUS SULFATE 325MG TABLET PO SCH ×3 (09:20→17:47)
[2021-12-07] MEDS: ASPIRIN 81MG TABLET PO SCH (09:20)
[2021-12-07] MEDS: FOLIC ACID 1MG TABLET PO SCH (09:20)
[2021-12-07] MEDS: GABAPENTIN 300MG CAPSULE PO SCH ×2 (09:20→17:47)
[2021-12-07] MEDS: ASCORBIC ACID 500 MG TABLET PO SCH (09:21)
[2021-12-07] MEDS: AMLODIPINE 5MG TABLET PO SCH ×2 (09:22→20:26)
[2021-12-07] MEDS: CARVEDILOL 6.25 MG TABLET PO SCH ×2 (09:22→20:25)
[2021-12-07] MEDS: ALLOPURINOL 300 MG TABLET PO SCH (09:23)
[2021-12-07] MEDS ORDERED: ERGOCALCIFEROL 50000UNITS CAPSULE PO SCH (12:15)
[2021-12-07] MEDS: ACETAMINOPHEN 500MG TABLET PO PRN ×2 (14:15→20:25)
[2021-12-07 20:00] VITALS: BP 161/69
[2021-12-07] MEDS: INSULIN GLARGINE 100 UNITS/ML SUBCUT SCH (21:01)
[2021-12-08] MEDS: SUCRALFATE 1 G/10 ML UDC PO SCH ×4 (06:30→20:00)
[2021-12-08 06:43] LABS: BASOPHILS % 0.5 % (0.0-2.0); EOSINOPHILS % 4.6 % (0.0-5.0); HEMATOCRIT. 22.7 % (36.0-48.0); HEMOGLOBIN. 7.2 g/dL (12.0-16.0); LYMPHOCYTES % 21.4 % (20.0-50.0); MEAN CORPUSCULAR HEMOGLOBIN 29.9 pg (28.0-32.0); MEAN CORPUSCULAR VOLUME 94.4 fL (81.0-99.0); MONOCYTES % 9.8 % (2.0-8.0); NEUTROPHILS % 63.7 % (40.0-76.0); PLATELET 299 x1000/uL (130-400); RED CELL DISTRIBUTION WIDTH 16.9 % (11.6-14.6)
[2021-12-08] MEDS: OMEPRAZOLE 20MG CAPSULE EXTENDED RELEASE PO SCH (06:52)
[2021-12-08] MEDS: BLOOD SUGAR DIAGNOSTIC STRIP TEST SCH ×4 (06:57→21:11)
[2021-12-08 08:00] VITALS: BP 154/62
[2021-12-08] MEDS: INSULIN LISPRO 100 UNITS/ML SUBCUT SCH ×4 (09:00→21:00)
[2021-12-08] MEDS: DICLOFENAC SODIUM 1% GEL 50GM TOP SCH ×4 (09:11→20:56)
[2021-12-08] MEDS: CARVEDILOL 6.25 MG TABLET PO SCH ×2 (09:11→20:57)
[2021-12-08] MEDS: ASCORBIC ACID 500 MG TABLET PO SCH (09:12)
[2021-12-08] MEDS: ASPIRIN 81MG TABLET PO SCH (09:12)
[2021-12-08] MEDS: AMLODIPINE 5MG TABLET PO SCH ×2 (09:12→20:59)
[2021-12-08] MEDS: GABAPENTIN 300MG CAPSULE PO SCH ×2 (09:12→18:28)
[2021-12-08] MEDS: ALLOPURINOL 300 MG TABLET PO SCH (09:12)
[2021-12-08] MEDS: FOLIC ACID 1MG TABLET PO SCH (09:12)
[2021-12-08] MEDS: FERROUS SULFATE 325MG TABLET PO SCH ×3 (09:12→18:28)
[2021-12-08] MEDS: ACETAMINOPHEN 500MG TABLET PO PRN (09:14)
[2021-12-08] MEDS ORDERED: SODIUM POLYSTYRENE SULFONATE 15 G/60 ML BOT PO NR (15:30)
[2021-12-08 20:00] VITALS: BP 138/56
[2021-12-08] MEDS: INSULIN GLARGINE 100 UNITS/ML SUBCUT SCH (22:00)
[2021-12-09] VITALS (8 sets, daily range): BP systolic 119–144; BP diastolic 47–53
[2021-12-09] MEDS: SUCRALFATE 1 G/10 ML UDC PO SCH ×5 (06:30→22:26)
[2021-12-09] MEDS: OMEPRAZOLE 20MG CAPSULE EXTENDED RELEASE PO SCH (06:43)
[2021-12-09] MEDS: BLOOD SUGAR DIAGNOSTIC STRIP TEST SCH ×4 (06:44→21:00)
[2021-12-09 07:44] LABS: BASOPHILS % 0.8 % (0.0-2.0); EOSINOPHILS % 4.7 % (0.0-5.0); HEMATOCRIT. 21.5 % (36.0-48.0); LYMPHOCYTES % 20.1 % (20.0-50.0); MEAN CORPUSCULAR HEMOGLOBIN 29.6 pg (28.0-32.0); MEAN PLATELET VOLUME 8.2 fl (7.4-10.4); MONOCYTES % 10.3 % (2.0-8.0); NEUTROPHILS % 64.1 % (40.0-76.0); PLATELET 305 x1000/uL (130-400); RED BLOOD CELL COUNT 2.31 mill/uL (4.2-5.4); RED CELL DISTRIBUTION WIDTH 17.1 % (11.6-14.6)
[2021-12-09] MEDS: INSULIN LISPRO 100 UNITS/ML SUBCUT SCH ×4 (09:00→21:00)
[2021-12-09 09:01] LABS: HEMOGLOBIN. 6.8 g/dL (12.0-16.0)
[2021-12-09] MEDS: ASCORBIC ACID 500 MG TABLET PO SCH (11:22)
[2021-12-09] MEDS: CARVEDILOL 6.25 MG TABLET PO SCH ×2 (11:22→21:00)
[2021-12-09] MEDS: FOLIC ACID 1MG TABLET PO SCH (11:22)
[2021-12-09] MEDS: ALLOPURINOL 300 MG TABLET PO SCH (11:22)
[2021-12-09] MEDS: FERROUS SULFATE 325MG TABLET PO SCH ×3 (11:22→18:24)
[2021-12-09] MEDS: ASPIRIN 81MG TABLET PO SCH (11:23)
[2021-12-09] MEDS: AMLODIPINE 5MG TABLET PO SCH ×2 (11:23→21:34)
[2021-12-09] MEDS: DICLOFENAC SODIUM 1% GEL 50GM TOP SCH ×5 (11:23→22:27)
[2021-12-09] MEDS: GABAPENTIN 300MG CAPSULE PO SCH ×2 (11:24→18:24)
[2021-12-09] MEDS: INSULIN GLARGINE 100 UNITS/ML SUBCUT SCH (21:42)
[2021-12-10] MEDS: OMEPRAZOLE 20MG CAPSULE EXTENDED RELEASE PO SCH (06:30)
[2021-12-10] MEDS: BLOOD SUGAR DIAGNOSTIC STRIP TEST SCH ×2 (06:30→12:01)
[2021-12-10] MEDS: INSULIN LISPRO 100 UNITS/ML SUBCUT SCH ×2 (06:36→12:01)
[2021-12-10 08:00] VITALS: BP 157/65
[2021-12-10] MEDS: FERROUS SULFATE 325MG TABLET PO SCH (08:53)
[2021-12-10] MEDS: AMLODIPINE 5MG TABLET PO SCH (08:53)
[2021-12-10] MEDS: ALLOPURINOL 300 MG TABLET PO SCH (08:53)
[2021-12-10] MEDS: GABAPENTIN 300MG CAPSULE PO SCH (08:53)
[2021-12-10] MEDS: CARVEDILOL 6.25 MG TABLET PO SCH (08:54)
[2021-12-10] MEDS: FOLIC ACID 1MG TABLET PO SCH (08:54)
[2021-12-10] MEDS: ASCORBIC ACID 500 MG TABLET PO SCH (08:54)
[2021-12-10] MEDS: ASPIRIN 81MG TABLET PO SCH (08:54)
[2021-12-10 10:13] VITALS: BP 157/65
[2021-12-10] MEDS: SUCRALFATE 1 G/10 ML UDC PO SCH (11:15)
[2021-12-10 11:35] LABS: BASOPHILS % 0.8 % (0.0-2.0); EOSINOPHILS % 4.4 % (0.0-5.0); HEMATOCRIT. 30.2 % (36.0-48.0); HEMOGLOBIN. 9.9 g/dL (12.0-16.0); LYMPHOCYTES % 14.5 % (20.0-50.0); MEAN CORPUSCULAR HEMOGLOBIN 29.9 pg (28.0-32.0); MEAN CORPUSCULAR VOLUME 91.1 fL (81.0-99.0); MEAN PLATELET VOLUME 7.6 fl (7.4-10.4); MONOCYTES % 7.7 % (2.0-8.0); NEUTROPHILS % 72.6 % (40.0-76.0); PLATELET 358 x1000/uL (130-400); RED BLOOD CELL COUNT 3.32 mill/uL (4.2-5.4); RED CELL DISTRIBUTION WIDTH 16.9 % (11.6-14.6)
== END 2021-12-10 12:40 | disposition home or self-care (01) | DRG 291 ==
PROVIDERS: ADMIT Physical Medicine & Rehabilitation Spinal Cord Injury Medicine; ATTEND Specialist
PROC: 30233N1 Transfusion of Nonautologous Red Blood Cells into Peripheral Vein, Percutaneous Approach (ICD-10-PCS; principal; 2021-12-09)
DX: I13.0 Hypertensive heart and chronic kidney disease with heart failure and stage 1 through stage 4 chronic kidney disease, or unspecified chronic kidney disease (principal); A41.59 Other Gram-negative sepsis; G82.50 Quadriplegia, unspecified; G95.29 Other cord compression; N17.9 Acute kidney failure, unspecified; N39.0 Urinary tract infection, site not specified; J98.11 Atelectasis; N18.4 Chronic kidney disease, stage 4 (severe); C94.6 Myelodysplastic disease, not elsewhere classified; D84.9 Immunodeficiency, unspecified; I42.9 Cardiomyopathy, unspecified; M48.061 Spinal stenosis, lumbar region without neurogenic claudication; M48.04 Spinal stenosis, thoracic region; E11.42 Type 2 diabetes mellitus with diabetic polyneuropathy; B96.4 Proteus (mirabilis) (morganii) as the cause of diseases classified elsewhere; M54.2 Cervicalgia; E78.5 Hyperlipidemia, unspecified; R53.81 Other malaise; G89.29 Other chronic pain; L89.90 Pressure ulcer of unspecified site, unspecified stage; E53.8 Deficiency of other specified B group vitamins; E55.9 Vitamin D deficiency, unspecified; E87.5 Hyperkalemia; E61.1 Iron deficiency; F03.90 Unspecified dementia, unspecified severity, without behavioral disturbance, psychotic disturbance, mood disturbance, and anxiety; F41.9 Anxiety disorder, unspecified; M17.11 Unilateral primary osteoarthritis, right knee; J44.9 Chronic obstructive pulmonary disease, unspecified; Z96.653 Presence of artificial knee joint, bilateral; E66.01 Morbid (severe) obesity due to excess calories; D63.8 Anemia in other chronic diseases classified elsewhere; E87.6 Hypokalemia; E11.22 Type 2 diabetes mellitus with diabetic chronic kidney disease; I25.10 Atherosclerotic heart disease of native coronary artery without angina pectoris; I50.9 Heart failure, unspecified; M81.0 Age-related osteoporosis without current pathological fracture; Z87.891 Personal history of nicotine dependence; Z82.49 Family history of ischemic heart disease and other diseases of the circulatory system; Z95.0 Presence of cardiac pacemaker; Z86.73 Personal history of transient ischemic attack (TIA), and cerebral infarction without residual deficits; Z86.011 Personal history of benign neoplasm of the brain; Z90.710 Acquired absence of both cervix and uterus; Z88.0 Allergy status to penicillin; Z68.34 Body mass index [BMI] 34.0-34.9, adult; M54.10 Radiculopathy, site unspecified; M79.609 Pain in unspecified limb
CPT/HCPCS: 36415; 71045; 73560; 80048; 80053; 80170; 82306; 82607; 82668; 82728; 82746; 82784; 82962; 83540; 83550; 83883; 84134; 84443; 85014; 85018; 85025; 86334; 86850; 86900; 86920; 93970; 97110; 97116; 97163; 97166; 97530; 97535; J1580; J1815; J7040; P9016; A4315